=== PATIENT | male | born 1960 | race Caucasian/White ===

== ENCOUNTER 2018-07-14 16:35 | Inpatient (IN) ==
[2018-07-14] MEDS ORDERED: Ondansetron 4 MG/2 ML VIAL IVP ONE ×2 (16:55→20:28)
[2018-07-14] MEDS ORDERED: 0.9 % Sodium Chloride 1,000 ML IVC ONE ×2 (16:55→19:37)
--- NOTE | 2018-07-14 16:59 | Emergency Department Note ---
Disposition Clinical Impression: Hyperglycemia, ALEX (acute kidney injury) Sepsis Qualifiers: Sepsis type: sepsis due to unspecified organism Qualified Code(s): A41.9 - Sepsis, unspecified organism Pneumonia Qualifiers: Pneumonia type: due to unspecified organism Laterality: right Lung location: upper lobe of lung Qualified Code(s): J18.1 - Lobar pneumonia, unspecified organism Anemia Qualifiers: Anemia type: unspecified type Qualified Code(s): D64.9 - Anemia, unspecified Disposition: Admitted As Inpatient Condition: Fair Referrals: Rosario Abad NURSING DEPARTMENT CHAIRPERSON [Primary Care Provider] - Forms: ED Satisfaction Letter, Work/School Release Time of Disposition: 22:02 General Adult HPI - General Chief complaint: ED General Medical Stated complaint: N/V/D Time Seen by Provider: 07/14/18 16:43 Source: patient Mode of arrival: ambulatory Limitations: no limitations Nursing Notes Reviewed: Yes Vital Signs Reviewed: Yes - History of Present Illness HPI Narrative: Patient is a 58-year-old male that presents the emergency department with reports of nausea vomiting and diarrhea as well as being hyperglycemic. Patient and his states that this is been ongoing for An appear to time became to Dr. Pdeerson's office to have further evaluated. Patient was then subsequently sent here to the emergency department for further evaluation. Patient states that he has some mild lower abdominal discomfort. Patient states that he has diarrhea that is watery and will soak through the pens that he wears. Patient also states he has chronic vomiting and has to spit up into a bucket multiple times per day. She also states that his blood sugar has been running high at home. States that the meter does not read it just reads high. Patient states that he has been taking all of his insulin including his Lantus and NovoLog as prescribed. 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 Denies any fevers or chills. Pain Scale: 8 - Related Data Home Medications Medication Instructions Recorded Confirmed Cyanocobalamin (B-12) [Vitamin B12] 1,000 mcg PO DAILY 07/14/18 07/14/18 Glimepiride [Amaryl] 2 mg PO BID 07/14/18 07/14/18 Insulin ASPART [NovoLOG] 0 unit SQ TID 07/14/18 07/14/18 Insulin Glargine [Lantus] 30 units SQ BID 07/14/18 07/14/18 Lisinopril [Zestril] 10 mg PO DAILY 07/14/18 07/14/18 Metformin HCl 1,000 mg PO BID 07/14/18 07/14/18 Allergies Allergy/AdvReac Type Severity Reaction Status Date / Time No Known Allergies Allergy Verified 07/14/18 16:40 All systems ED: reviewed and negative except as stated. Constitutional: Denies: fever, chills Cardiovascular: Denies: chest pain Respiratory: Denies: dyspnea Gastrointestinal: Reports: abdominal pain, nausea, vomiting, diarrhea Past Medical History - Past Medical History Medical history: Reports: diabetes Psychiatric history: Reports: no psych history - Social History Smoking Status: Current every day smoker Smokeless Tobacco Status: No Alcohol use: Reports: none Drug use: Reports: none Physical Exam - General Limitations: no limitations General appearance: alert, in no apparent distress - Head Head exam: atraumatic, normocephalic - Eye Eye exam: Present: normal appearance, EOMI - Neck Neck exam: Present: normal inspection, full ROM, trachea midline - Respiratory Respiratory exam: Present: normal lung sounds bilaterally. Absent: respiratory distress, wheezes - Cardiovascular Cardiovascular exam: Present: regular rate, normal rhythm, normal heart sounds, +S1, +S2 - Abdominal Exam Abdominal exam: Present: soft, Non-Tender, normal bowel sounds - Neurological Exam Neurological exam: Present: alert, oriented X3 - Psychiatric Psychiatric exam: Present: normal affect, normal mood - Skin Skin exam: Present: warm, dry, intact Course Vital Signs Temperature 98.1 F 07/14/18 16:37 Pulse Rate 122 07/14/18 16:37 Respiratory Rate 20 07/14/18 16:37 Blood Pressure 87/59 07/14/18 16:37 O2 Sat by Pulse Oximetry 98 07/14/18 16:37 Temperature 98.1 F 07/14/18 16:48 Pulse Rate 115 07/14/18 21:01 Respiratory Rate 19 07/14/18 21:01 Blood Pressure 148/72 07/14/18 21:01 O2 Sat by Pulse Oximetry 96 07/14/18 21:01 Oxygen Delivery Oxygen Delivery Room Air Medical Decision Making - MDM Narrative Medical decision making narrative: Due to the patient having presented with abdominal pain nausea vomiting diarrhea and elevated blood glucose are is concern for possible being in DKA. We will obtain basic laboratory testing, VBG, beta hydroxybutyric acid and we will provide the patient with antiemetics and IV fluids here in the emergency department. Disposition will be pending the workup of his laboratory testing. Patient does have an elevated white count of 16. Patient has a elevated glucose of 299 which is consistent with his diabetes. Patient does not have a anion gap. Patient does not have elevated ketones in his urine. Patient is not acidotic at this time. Patient does not meet criteria for DKA. Patient has been given IV fluids. Patient does appear to have acute kidney injury with a creatinine of 2.06 and a GFR of 33. Patient will be given additional IV fluids based on the patient having the acute kidney injury. Patient does have an anemia of 10.7 however this does appear to be chronic for the patient and is not new at this time. 1953 the patient was identified as meeting Sirs criteria. Patient has a significant male other white, 16,000 with a heart rate in the 120s. At this time there is no identifiable source of infection. A chest x-ray and influenza swabs have been ordered. The urine is still pending. Lactic acid is also been ordered. If the patient comes back with a source of infection the patient will be started on broad-spectrum antibiotics. Patient will require admission to the hospital for evaluation and management of his medical condition. Patient does have the elevation in his white blood cell count and tachycardia. With the findings on the chest x-ray consistent with a possible focal consolidation the patient does meet sepsis criteria. Patient was started on antibiotics of Levaquin. Patient will need to be admitted to the hospital for continuation of his care and further evaluation and management. His urinalysis is pending however the patient did receive Levaquin which would cover for his urine if he were to be infected. Called spoke the admitting hospitalist Dr. Laguna and he has accepted the patient to their service. - Medical Records Medical records reviewed: Yes I reviewed the patient's medical records. - Lab Data Lab results reviewed: Yes I reviewed the patient's lab results. Result diagrams: 07/14/18 18:28 07/14/18 18:28 Lab Results 07/14/18 07/14/18 07/14/18 Range/Units 18:28 18:28 18:28 WBC 16.0 H (4.3-11.1) K/mcL RBC 3.75 L (4.19-5.50) M/mcL Hgb 10.7 L (12.9-16.9) g/dL Hct 32.7 L (37.5-50.1) % MCV 87.2 (83.0-100.0) fL MCH 28.5 (28.0-33.3) pg MCHC 32.7 (31.6-35.5) g/dL RDW 15.3 H (11.5-14.5) % Plt Count 64 L (140-400) K/mcL MPV 10.6 (9.4-12.4) fL Seg Neutrophils % 64.0 % Band Neutrophils % 16.0 H (0-4) % Lymphocytes % 12.0 % Monocytes % 8.0 % Neutrophils # 12.8 H (1.6-8.9) K/mcL Lymphocytes # 1.9 (0.6-4.6) K/mcL Monocytes # 1.3 (0.0-1.3) K/mcL Platelet Estimate Decreased L (Normal) Immature Plt Fraction 4.0 (1.1-6.1) % VBG pH (7.32-7.42) pH Units VBG pCO2 (41-51) mmHg VBG pO2 (25-50) mmHg VBG HCO3 (21-27) mEq/L Sodium 133 L (136-145) mEq/L Potassium 3.4 L (3.5-5.1) mEq/L Chloride 102 (98-107) mEq/L Carbon Dioxide 25 (23-29) mEq/L BUN 33 H (8-23) mg/dL Creatinine 2.06 H (0.70-1.30) mg/dL Est GFR ( Amer) 40 L (> 60) Est GFR (Non-Af Amer) 33 L (> 60) BUN/Creatinine Ratio 16 (6-26) Glucose 299 H (70-105) mg/dL Calculated Osmolality 294 (280-300) Lactic Acid (0.5-2.2) mmol/L Calcium 8.0 L (8.6-10.3) mg/dL Total Bilirubin 0.6 (0.3-1.0) mg/dL Direct Bilirubin 0.1 (0.0-0.2) mg/dL Indirect Bilirubin 0.5 (0.0-1.2) mg/dL AST 12 L (13-39) Units/L ALT 14 (7-52) Units/L Alkaline Phosphatase 85 (34-104) Units/L Serum Total Protein 6.0 L (6.4-8.9) g/dL Albumin 3.1 L (3.5-5.7) g/dL Globulin 2.9 (2.4-3.5) g/dL Albumin/Globulin Ratio 1.1 (1.1-2.2) Lipase < 3 L (11-82) Units/L Beta-Hydroxybutyric Acd 0.20 (0.02-0.27) mmol/L 07/14/18 07/14/18 Range/Units 18:46 20:17 WBC (4.3-11.1) K/mcL RBC (4.19-5.50) M/mcL Hgb (12.9-16.9) g/dL Hct (37.5-50.1) % MCV (83.0-100.0) fL MCH (28.0-33.3) pg MCHC (31.6-35.5) g/dL RDW (11.5-14.5) % Plt Count (140-400) K/mcL MPV (9.4-12.4) fL Seg Neutrophils % % Band Neutrophils % (0-4) % Lymphocytes % % Monocytes % % Neutrophils # (1.6-8.9) K/mcL Lymphocytes # (0.6-4.6) K/mcL Monocytes # (0.0-1.3) K/mcL Platelet Estimate (Normal) Immature Plt Fraction (1.1-6.1) % VBG pH 7.44 H (7.32-7.42) pH Units VBG pCO2 36 L (41-51) mmHg VBG pO2 58 H (25-50) mmHg VBG HCO3 24 (21-27) mEq/L Sodium (136-145) mEq/L Potassium (3.5-5.1) mEq/L Chloride (98-107) mEq/L Carbon Dioxide (23-29) mEq/L BUN (8-23) mg/dL Creatinine (0.70-1.30) mg/dL Est GFR ( Amer) (> 60) Est GFR (Non-Af Amer) (> 60) BUN/Creatinine Ratio (6-26) Glucose (70-105) mg/dL Calculated Osmolality (280-300) Lactic Acid 0.9 (0.5-2.2) mmol/L Calcium (8.6-10.3) mg/dL Total Bilirubin (0.3-1.0) mg/dL Direct Bilirubin (0.0-0.2) mg/dL Indirect Bilirubin (0.0-1.2) mg/dL AST (13-39) Units/L ALT (7-52) Units/L Alkaline Phosphatase (34-104) Units/L Serum Total Protein (6.4-8.9) g/dL Albumin (3.5-5.7) g/dL Globulin (2.4-3.5) g/dL Albumin/Globulin Ratio (1.1-2.2) Lipase (11-82) Units/L Beta-Hydroxybutyric Acd (0.02-0.27) mmol/L - Radiology Data Radiology results reviewed: Yes I reviewed the patient's radiology results. Chest X-Ray 07/14/18 19:36 IMPRESSION: Central vascular congestion without overt edema. Focal opacity overlying the right upper lung which could represent airspace disease, a nodule or could be external to the patient. Consider short interval follow-up radiograph with removal of overlying chest leads. D/ / Jerry Camacho MD / Jerry Camacho MD Interpreting Provider: Jerry Camacho MD - EKG Data EKG #1 EKG attestation: Yes I reviewed and interpreted this EKG. EKG results narrative: EKG shows a sinus rhythm and rate of 108 bpm, CT interval 134, QRS duration 85, QTC of 486. No evidence of STEMI on EKG. Attestation Statement - Attestation Attestation: I, Otoniel Amado DO, examined this patient [id number] and my medical decision-making was reviewed with Dr. Will Pino, Resident Physician. I ag ree with the documented findings, disposition and treatment plan as described except to the extent set forth below. Please see my progress notes for details.
--- NOTE | 2018-07-14 18:37 | Emergency Department Note ---
Disposition Clinical Impression: Hyperglycemia, ALEX (acute kidney injury) Sepsis Qualifiers: Sepsis type: sepsis due to unspecified organism Qualified Code(s): A41.9 - Sepsis, unspecified organism Pneumonia Qualifiers: Pneumonia type: due to unspecified organism Laterality: right Lung location: upper lobe of lung Qualified Code(s): J18.1 - Lobar pneumonia, unspecified organism Anemia Qualifiers: Anemia type: unspecified type Qualified Code(s): D64.9 - Anemia, unspecified Disposition: Admitted As Inpatient Condition: Fair Referrals: Rosario Abad CNP [Primary Care Provider] - Forms: ED Satisfaction Letter, Work/School Release Time of Disposition: 22:20 General Adult HPI - General Chief complaint: ED General Medical Stated complaint: N/V/D Time Seen by Provider: 07/14/18 16:43 Source: patient Mode of arrival: ambulatory Limitations: no limitations - History of Present Illness Pain Scale: 8 - Related Data Home Medications Medication Instructions Recorded Confirmed Cyanocobalamin (B-12) [Vitamin B12] 1,000 mcg PO DAILY 07/14/18 07/14/18 Glimepiride [Amaryl] 2 mg PO BID 07/14/18 07/14/18 Insulin ASPART [NovoLOG] 0 unit SQ TID 07/14/18 07/14/18 Insulin Glargine [Lantus] 30 units SQ BID 07/14/18 07/14/18 Lisinopril [Zestril] 10 mg PO DAILY 07/14/18 07/14/18 Metformin HCl 1,000 mg PO BID 07/14/18 07/14/18 Allergies Allergy/AdvReac Type Severity Reaction Status Date / Time No Known Allergies Allergy Verified 07/14/18 16:40 Constitutional: Denies: fever, chills Cardiovascular: Denies: chest pain Respiratory: Denies: dyspnea Gastrointestinal: Reports: abdominal pain, nausea, vomiting, diarrhea Past Medical History - Past Medical History Medical history: Reports: diabetes Psychiatric history: Reports: no psych history - Social History Smoking Status: Current every day smoker Smokeless Tobacco Status: No Alcohol use: Reports: none Drug use: Reports: none Physical Exam - General Limitations: no limitations General appearance: alert, in no apparent distress Course Vital Signs Temperature 98.1 F 07/14/18 16:37 Pulse Rate 122 07/14/18 16:37 Respiratory Rate 20 07/14/18 16:37 Blood Pressure 87/59 07/14/18 16:37 O2 Sat by Pulse Oximetry 98 07/14/18 16:37 Temperature 98.1 F 07/14/18 16:48 Pulse Rate 115 07/14/18 21:01 Respiratory Rate 19 07/14/18 21:01 Blood Pressure 148/72 07/14/18 21:01 O2 Sat by Pulse Oximetry 96 07/14/18 21:01 Oxygen Delivery Oxygen Delivery Room Air Medical Decision Making - Lab Data Result diagrams: 07/14/18 18:28 07/14/18 18:28 Lab Results 07/14/18 07/14/18 07/14/18 Range/Units 18:28 18:28 18:28 WBC 16.0 H (4.3-11.1) K/mcL RBC 3.75 L (4.19-5.50) M/mcL Hgb 10.7 L (12.9-16.9) g/dL Hct 32.7 L (37.5-50.1) % MCV 87.2 (83.0-100.0) fL MCH 28.5 (28.0-33.3) pg MCHC 32.7 (31.6-35.5) g/dL RDW 15.3 H (11.5-14.5) % Plt Count 64 L (140-400) K/mcL MPV 10.6 (9.4-12.4) fL Seg Neutrophils % 64.0 % Band Neutrophils % 16.0 H (0-4) % Lymphocytes % 12.0 % Monocytes % 8.0 % Neutrophils # 12.8 H (1.6-8.9) K/mcL Lymphocytes # 1.9 (0.6-4.6) K/mcL Monocytes # 1.3 (0.0-1.3) K/mcL Platelet Estimate Decreased L (Normal) Immature Plt Fraction 4.0 (1.1-6.1) % VBG pH (7.32-7.42) pH Units VBG pCO2 (41-51) mmHg VBG pO2 (25-50) mmHg VBG HCO3 (21-27) mEq/L Sodium 133 L (136-145) mEq/L Potassium 3.4 L (3.5-5.1) mEq/L Chloride 102 (98-107) mEq/L Carbon Dioxide 25 (23-29) mEq/L BUN 33 H (8-23) mg/dL Creatinine 2.06 H (0.70-1.30) mg/dL Est GFR ( Amer) 40 L (> 60) Est GFR (Non-Af Amer) 33 L (> 60) BUN/Creatinine Ratio 16 (6-26) Glucose 299 H (70-105) mg/dL Calculated Osmolality 294 (280-300) Lactic Acid (0.5-2.2) mmol/L Calcium 8.0 L (8.6-10.3) mg/dL Total Bilirubin 0.6 (0.3-1.0) mg/dL Direct Bilirubin 0.1 (0.0-0.2) mg/dL Indirect Bilirubin 0.5 (0.0-1.2) mg/dL AST 12 L (13-39) Units/L ALT 14 (7-52) Units/L Alkaline Phosphatase 85 (34-104) Units/L Serum Total Protein 6.0 L (6.4-8.9) g/dL Albumin 3.1 L (3.5-5.7) g/dL Globulin 2.9 (2.4-3.5) g/dL Albumin/Globulin Ratio 1.1 (1.1-2.2) Lipase < 3 L (11-82) Units/L Beta-Hydroxybutyric Acd 0.20 (0.02-0.27) mmol/L 07/14/18 07/14/18 Range/Units 18:46 20:17 WBC (4.3-11.1) K/mcL RBC (4.19-5.50) M/mcL Hgb (12.9-16.9) g/dL Hct (37.5-50.1) % MCV (83.0-100.0) fL MCH (28.0-33.3) pg MCHC (31.6-35.5) g/dL RDW (11.5-14.5) % Plt Count (140-400) K/mcL MPV (9.4-12.4) fL Seg Neutrophils % % Band Neutrophils % (0-4) % Lymphocytes % % Monocytes % % Neutrophils # (1.6-8.9) K/mcL Lymphocytes # (0.6-4.6) K/mcL Monocytes # (0.0-1.3) K/mcL Platelet Estimate (Normal) Immature Plt Fraction (1.1-6.1) % VBG pH 7.44 H (7.32-7.42) pH Units VBG pCO2 36 L (41-51) mmHg VBG pO2 58 H (25-50) mmHg VBG HCO3 24 (21-27) mEq/L Sodium (136-145) mEq/L Potassium (3.5-5.1) mEq/L Chloride (98-107) mEq/L Carbon Dioxide (23-29) mEq/L BUN (8-23) mg/dL Creatinine (0.70-1.30) mg/dL Est GFR ( Amer) (> 60) Est GFR (Non-Af Amer) (> 60) BUN/Creatinine Ratio (6-26) Glucose (70-105) mg/dL Calculated Osmolality (280-300) Lactic Acid 0.9 (0.5-2.2) mmol/L Calcium (8.6-10.3) mg/dL Total Bilirubin (0.3-1.0) mg/dL Direct Bilirubin (0.0-0.2) mg/dL Indirect Bilirubin (0.0-1.2) mg/dL AST (13-39) Units/L ALT (7-52) Units/L Alkaline Phosphatase (34-104) Units/L Serum Total Protein (6.4-8.9) g/dL Albumin (3.5-5.7) g/dL Globulin (2.4-3.5) g/dL Albumin/Globulin Ratio (1.1-2.2) Lipase (11-82) Units/L Beta-Hydroxybutyric Acd (0.02-0.27) mmol/L Attestation Statement - Attestation Attestation: I, Otoniel Amado DO, examined this patient [id number] and my medical decision-making was reviewed with Dr. Will Pino, Resident Physician. I agree with the documented findings, disposition and treatment plan as described except to the extent set forth below. Please see my progress notes for details. 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 Patient is being seen and evaluated there today when they noticed that his glucoses significantly high. Patient is been having issues with diabetic con trol at home. Patient denies any falls trauma or injury. He has not had any recent illnesses. Denies any fevers and chills. Denies any chest pain shortness of breath headache or vision change. He has not had any specific nausea vomiting or diarrhea. Patient does have a history of smoking but has never been diagnosed with COPD. He does appear to be moderately uncomfortable on presentation. Lungs are clear to auscultation but with intermittent expiratory wheezing. Heart is regular. Abdomen is soft nontender nondistended with no guarding no rigidity no peritoneal symptoms at this time. Extremities appear to be normal. Accu-Chek prior to coming in is greater than 700 according to the . Patient has been in diabetic ketoacidosis in the past. There is concern for that at this time considering his blood pressure was low at the presentation as well as his heart rate being elevated. Fluid resuscitation nausea medication as well as chest x-ray EKG CBC chemistry and urinalysis will be collected at this point. Disposition pending the full workup and treatment course. Patient is otherwise resting in the bed. We will continue to monitor here until treatment course has been established and completed. See detailed documentation of the physical exam, medical intervention, medical decision- making and disposition in the resident physician's note. 1915 Patient has elevated white blood cell count neutrophilia. No focal infectious source noted at this time. Renal insufficiency is also noted. Dehydration is a etiology is suspected at this point. Fluid hydration will be started this time. Urinalysis and chest x-ray along with EKG will be collected as well. Patient is otherwise just describing generalized malaise and myalgias. Patient will most likely require admission for fluid resuscitation close monitoring. 2200 Patient has neutrophilia as well as elevated WBC count. His lactic acid as well as his blood pressure have been stable. Patient does meet sepsis criteria at 2130 hours. Blood cultures and antibiotics will be ordered at this time. Urinalysis is still pending. Suspected infectious sources pneumonia based on the chest x-ray at this time. He will be admitted for continuation of care monitor here in the hospital setting. Fluid resuscitation is alert he then started this time secondary to acute renal insufficiency and other underlying etiology. Patient will be discussed with the hospitals for admission to be completed and then disposition will be determined. Dr. Laguna reviewed the patient's presentation symptoms medical history as well as intervention provided here in the emergency room. No other acute recommendations this time. Patient is otherwise clinically stable. Antibiotic regimen started been started.
[2018-07-14 18:49] LABS: VBG HCO3 24 mEq/L (21-27); VBG PCO2 36 mmHg (41-51); VBG PH 7.44 pH Units (7.32-7.42); VBG PO2 58 mmHg (25-50)
[2018-07-14 18:53] LABS: Hematocrit 32.7 % (37.5-50.1); Hemoglobin 10.7 g/dL (12.9-16.9); Mean Corpuscular HGB Conc 32.7 g/dL (31.6-35.5); Mean Corpuscular Hemoglobin 28.5 pg (28.0-33.3); Mean Corpuscular Volume 87.2 fL (83.0-100.0); Mean Platelet Volume 10.6 fL (9.4-12.4); Red Blood Count 3.75 M/mcL (4.19-5.50); Red Cell Distribution Width 15.3 % (11.5-14.5)
[2018-07-14 19:18] LABS: Platelet Count 64 K/mcL (140-400)
[2018-07-14 19:20] LABS: Lymphocytes # 1.9 K/mcL (0.6-4.6); Monocytes # 1.3 K/mcL (0.0-1.3); Neutrophils # 12.8 K/mcL (1.6-8.9); Platelet Estimate Decreased (Normal)
[2018-07-14 19:34] LABS: Alanine Aminotransferase 14 Units/L (7-52); Albumin 3.1 g/dL (3.5-5.7); Albumin/Globulin Ratio 1.1 (1.1-2.2); Alkaline Phosphatase 85 Units/L (34-104); Aspartate Amino Transferase 12 Units/L (13-39); BUN/Creatinine Ratio 16 (6-26); Bilirubin,Direct 0.1 mg/dL (0.0-0.2); Bilirubin,Indirect 0.5 mg/dL (0.0-1.2); Bilirubin,Total 0.6 mg/dL (0.3-1.0); Blood Urea Nitrogen 33 mg/dL (8-23); Carbon Dioxide 25 mEq/L (23-29); Chloride 102 mEq/L (98-107); Globulin 2.9 g/dL (2.4-3.5); Glucose 299 mg/dL (70-105); Lipase < 3 Units/L (11-82); Osmolality,Calculated 294 (280-300); Potassium 3.4 mEq/L (3.5-5.1); Sodium 133 mEq/L (136-145); eGFR For Non-African Americans 33 (> 60)
[2018-07-14] MEDS ORDERED: Levofloxacin 750 MG/150 ML 750 MG/150 ML BAG IVPB ONE (21:59)
[2018-07-14 22:17] LABS: Bilirubin,Urine Negative (Negative); Blood,Urine Moderate (Negative); Clarity,Urine Cloudy (Clear); Color,Urine Yellow (Yellow); Glucose,Urine (UA) 100 mg/dL (Normal); Ketones,Urine Negative (Negative); Leukocyte Esterase,Urine Small (Negative); Nitrite,Urine Positive (Negative); PH,Urine 5.5 pH Units (5.0-8.0); Protein,Urine >=300 mg/dL (Neg-Trace); Specific Gravity,Urine 1.016 (1.010-1.025); Urobilinogen,Urine Normal (Normal)
[2018-07-14 22:19] LABS: Bacteria,Urine Many per hpf (None-Few); Hyaline Casts,Urine Few per lpf (None-Few); Squamous Epithelial Cell,Urine Many per lpf (None-Few); WBC,Urine TNTC per hpf (0-3)
[2018-07-14] MEDS ORDERED: 0.9 % Sodium Chloride 1,000 ML IVC SCH (22:30)
[2018-07-15] MEDS ORDERED: D5% in Water 1,000 ML IVC PRN (05:47)
[2018-07-15] MEDS ORDERED: Acetaminophen 325 MG TABLET PO PRN (05:47)
[2018-07-15] MEDS ORDERED: Dextrose Gel 15 GM/37.5 ML TUBE PO PRN ×2 (05:47)
[2018-07-15] MEDS ORDERED: Albuterol 2.5 MG/3 ML NEBULIZER IH PRN (05:47)
[2018-07-15] MEDS ORDERED: *HR* Dextrose 50 % in Water (Syg) 50 ML SYRINGE IVP PRN (05:47)
[2018-07-15] MEDS ORDERED: Naloxone 0.4 MG/ML INJ IVP PRN (05:47)
[2018-07-15] MEDS ORDERED: 0.9 % Sodium Chloride 1,000 ML IVC SCH (05:53)
--- NOTE | 2018-07-15 05:57 | Internal Med History&Physical ---
Date of Encounter: 07/15/18 Time of Encounter: 05:54 Internal Medicine - H&P: HPI Chief complaint: vomiting, cough, fever Admitted From: Emergency Dept Plans for Post Hospital Care: Home History of present illness: Mr. Adams is a 58 year old male who was sent to the ER from Dr. Molina's office yesterday for concerns of poor glucose control and concern for possible DKA. He did not have any evidence of DKA on labs, but he was found to have evidence of pneumonia, UTI, and clinical parameters suggesting sepsis. He was started on IV fluid boluses and antibiotics and admitted to hospitalist service. Upon my assessment of the patient several hours later, he is on IV fluids and he already had a dose of antibiotics. Upon review of his labs and orders, he never had blood or urine cultures collected despite the fluid boluses and antibiotics administered. I will order STAT cultures at this time. He appears dehydrated. He states he was having vomiting and diarrhea for the last several days. He has had productive cough and some shortness of breath. He admits to subjective fevers and chills but no night sweats. He denies any ill contacts. He has had some dysuria as well. Patient does feel better after fluid boluses. Past Med Surg Social Fam HX - Past Medical History Attestation: Yes The following information was validated with the patient. Source: patient, old records reviewed Medical history: diabetes Additional medical history: Pancreatitis. Chronic back pain Psychiatric history: no psych history - Past Surgical History Surgical History: other Additional surgical history: Pseudocyst surgery. Left great toe amputation - Social History Smoking Status: Current every day smoker Smokeless Tobacco Status: No Alcohol use: none Drug use: none Current living situation: Home, With Family Activity Level: Independent ambulation Recent Out of Country Travel Within the Last 8 Weeks: No - Family History Mother Living Status: Hx Family GI Disorders: No Father Living Status: Hx Family GI Disorders: No Internal Medicine - H&P: Meds Cyanocobalamin (B-12) [Vitamin B12] 1,000 mcg PO DAILY 07/14/18 [History] Glimepiride [Amaryl] 2 mg PO BID 07/14/18 [History] Insulin ASPART [NovoLOG] 0 unit SQ TID 07/14/18 [History] Insulin Glargine [Lantus] 30 units SQ BID 07/14/18 [History] Lisinopril [Zestril] 10 mg PO DAILY 07/14/18 [History] Metformin HCl 1,000 mg PO BID 07/14/18 [History] Allergy/AdvReac Type Severity Reaction Status Date / Time No Known Allergies Allergy Verified 07/14/18 16:40 - Constitutional Constitutional: chills, fever(s), no night sweats - EENT Eyes: no blurry vision, no change in vision Ears: no ear pain, no tinnitus Nose, mouth and throat: no nasal congestion, no sinus pressure - Cardiovascular Cardiovascular ROS IM: no chest pain, no dyspnea, no lightheadedness, no orthopnea, no syncope - Respiratory Respiratory: cough, chest congestion, excessive phlegm production, no hemoptysis, no change in phlegm color, no pain with cough - Gastrointestinal Gastrointestinal: diarrhea, nausea, vomiting, no abdominal pain, no hematemesis, no hematochezia, no melena - Genitourinary Genitourinary ROS male: dysuria, no flank pain, no hematuria - Musculoskeletal Musculoskeletal ROS IM: no arthralgias, no back pain, no myalgias - Integumentary Integumentary IM: no rash, no jaundice - Neurological Neurological ROS: no disequilibrium, no dizziness, no focal weakness, no frequent falls, no headache(s) - Psychiatric Psychiatric: no anxiety, no depression - Endocrine Endocrine IM: no polydipsia, no polyphagia, no polyuria - Allergic/Immunologic Allergic/Immunologic: GI upset with certain foods, no wheezing - Constitutional Vitals: Temp Pulse Resp BP Pulse Ox 98.6 F 105 20 133/72 96 07/15/18 03:57 07/15/18 03:57 07/15/18 03:57 07/15/18 03:57 07/15/18 03:57 General appearance: Present: cooperative, mild distress, A&O X 3, pleasant, answers questions appropriately Exam: looks clinically dry - Head Head exam: Present: atraumatic, normal inspection - Eye Eye exam: Present: EOMI, PERRL. Absent: scleral icterus Pupils: Present: normal accommodation - ENT ENT exam: Present: mucous membranes dry, normal exam, normal oropharynx - Neck Neck exam general surgery: Present: full ROM, supple. Absent: tenderness, nuchal rigidity, thyromegaly - Respiratory Respiratory exam: Present: rales, rhonchi. Absent: accessory muscle use, chest wall tenderness, respiratory distress, wheezes, tachypnea - Cardiovascular Cardiovascular exam: Present: distant heart sounds, RRR, +S1, +S2. Absent: diastolic murmur, systolic murmur - GI/Abdominal GI/Abdominal exam: Present: hypoactive bowel sounds, soft, tenderness (mild suprapubic), no peritoneal signs. Absent: guarding, hepatomegaly, mass, rebound, splenomegaly - Extremities Exam Extremities exam: Present: full ROM, warm, radial pulses palpable and symmetrical. Absent: calf tenderness, pedal edema, tenderness - Back Exam Back exam: Absent: CVA tenderness (L), CVA tenderness (R) - Neurological Exam Neurological exam: Present: alert, CN II-XII intact, oriented X3, no focal deficits, strengths equal and symetr throughout - Psychiatric Psychiatric exam: Present: normal affect, normal mood - Skin Skin exam: Present: dry, intact, warm Internal Med - H&P Results - Labs CBC & Chem 7: 07/14/18 18:28 07/14/18 18:28 Labs: Short CBC 07/14/18 Range/Units 18:28 WBC 16.0 H (4.3-11.1) K/mcL Hgb 10.7 L (12.9-16.9) g/dL Hct 32.7 L (37.5-50.1) % Plt Count 64 L (140-400) K/mcL Neutrophils # 12.8 H (1.6-8.9) K/mcL BMP 07/14/18 18:28 Sodium 133 L Potassium 3.4 L Chloride 102 Carbon Dioxide 25 BUN 33 H Creatinine 2.06 H Glucose 299 H Calcium 8.0 L Liver Function 07/14/18 Range/Units 18:28 Total Bilirubin 0.6 (0.3-1.0) mg/dL Direct Bilirubin 0.1 (0.0-0.2) mg/dL AST 12 L (13-39) Units/L ALT 14 (7-52) Units/L Alkaline Phosphatase 85 (34-104) Units/L Albumin 3.1 L (3.5-5.7) g/dL Urine 07/14/18 Range/Units 22:06 Urine Color Yellow (Yellow) Urine Clarity Cloudy A (Clear) Urine pH 5.5 (5.0-8.0) pH Units Ur Specific [place] 1.016 (1.010-1.025) Urine Protein >=300 H (Neg-Trace) mg/dL Urine Glucose (UA) 100 H (Normal) mg/dL - ABG Interpretation ABG results: 07/14/18 18:46 VBG pH 7.44 H VBG pCO2 36 L VBG pO2 58 H VBG HCO3 24 - Impressions ITS Impressions Chest X-Ray 07/14/18 19:36 IMPRESSION: Central vascular congestion without overt edema. Focal opacity overlying the right upper lung which could represent airspace disease, a nodule or could be external to the patient. Consider short interval follow-up radiograph with removal of overlying chest leads. D/ / Jerry Camacho MD / Jerry Camacho MD Interpreting Provider: Jerry Camacho MD - Diagnostic Studies Chest x-ray Status: image reviewed by me (RUL pneumonia) - Assessment and plan (1) Sepsis Current Visit: Yes Status: Acute Assessment and plan: 1. Will continue IVF and monitor hemodynamics. 2. IV antibiotics to cover pneumonia and UTI. 3. STAT blood and urine cultures now as they were not done in ER. 4. Will trend lactate levels. Qualifiers: Sepsis type: sepsis due to unspecified organism Qualified Code(s): A41.9 - Sepsis, unspecified organism (2) Type 1 diabetes mellitus on insulin therapy Current Visit: Yes Status: Chronic Assessment and plan: 1. Will place on SSI and monitor glucose closely. 2. Hold oral home meds. (3) ALEX (acute kidney injury) Current Visit: Yes Status: Acute Assessment and plan: 1. Hydrate with IVF. 2. Hold NOLVIA. 3. Monitor renal function and consult nephrology if it fails to improve with above measures. (4) Pneumonia Current Visit: Yes Status: Acute Assessment and plan: 1. Will place on aerosols PRN and oxygen as needed. 2. Antibiotics and treatment for sepsis as above. Qualifiers: Pneumonia type: due to unspecified organism Laterality: right Lung location: upper lobe of lung Qualified Code(s): J18.1 - Lobar pneumonia, unspecified organism (5) DVT prophylaxis Current Visit: Yes Status: Acute Assessment and plan: 1. EPCD's. 2. No anticoagulation right now due to low platelet count.
[2018-07-15 06:33] LABS: Basophils % 0.2 %; Mean Corpuscular HGB Conc 32.2 g/dL (31.6-35.5); Mean Corpuscular Hemoglobin 28.4 pg (28.0-33.3)
[2018-07-15 06:35] LABS: Hematocrit 30.1 % (37.5-50.1); Hemoglobin 9.7 g/dL (12.9-16.9); Immature Granulocytes % 20.8 % (0-4); Immature Platelets 3.2 % (1.1-6.1); Lymphocytes # 0.4 K/mcL (0.6-4.6); Lymphocytes % 2.7 %; Mean Corpuscular Volume 88.3 fL (83.0-100.0); Mean Platelet Volume 10.9 fL (9.4-12.4); Monocytes # 0.5 K/mcL (0.0-1.3); Monocytes % 3.9 %; Neutrophils # 9.4 K/mcL (1.6-8.9); Red Blood Count 3.41 M/mcL (4.19-5.50); Red Cell Distribution Width 15.5 % (11.5-14.5); Segmented Neutrophils % 72.4 %
[2018-07-15 06:45] LABS: Platelet Count 55 K/mcL (140-400)
[2018-07-15 06:51] LABS: Albumin 2.8 g/dL (3.5-5.7); Bilirubin,Total 0.5 mg/dL (0.3-1.0); Calcium 7.3 mg/dL (8.6-10.3); Globulin 2.7 g/dL (2.4-3.5); Magnesium 1.2 mg/dL (1.6-2.6); Potassium 3.2 mEq/L (3.5-5.1); Total Protein 5.5 g/dL (6.4-8.9)
[2018-07-15 07:19] LABS: Estimated Average Glucose 312 mg/dl; Hemoglobin A1C 12.5 %
[2018-07-15 07:20] LABS: Platelet Estimate Slight Decrease (Normal)
[2018-07-15] MEDS: Insulin LISPRO 300 UNITS/3 ML VIAL SQ SCH ×3 (09:18→17:16)
[2018-07-15] MEDS: cefTRIAXone 2,000 MG in Water for inj. (sterile) 20 ML 20 ML IVP SCH (09:21)
[2018-07-15 10:11] LABS: Adenovirus Not Detected (Not Detect); Bordetella Pertussis Not Detected (Not Detect); Chlamydophila pneumoniae Not Detected (Not Detect); Coronavirus 229E Not Detected (Not Detect); Coronavirus HKU1 Not Detected (Not Detect); Coronavirus NL63 Not Detected (Not Detect); Coronavirus OC43 Not Detected (Not Detect); Human Metapneumovirus Not Detected (Not Detect); Human Rhinovirus/Enterovirus Not Detected (Not Detect); Influenza A Subtype 2009 H1 Not Detected (Not Detect); Influenza A Untypeable Not Detected (Not Detect); Influenza B Not Detected (Not Detect); Mycoplasma pneumoniae Not Detected (Not Detect); Parainfluenza Virus 1 Not Detected (Not Detect); Parainfluenza Virus 2 Not Detected (Not Detect); Parainfluenza Virus 3 Not Detected (Not Detect); Parainfluenza Virus 4 Not Detected (Not Detect); Respiratory Syncytial Virus Not Detected (Not Detect)
[2018-07-15] MEDS: Ipratropium/Albuterol Neb 3 ML IH SCH ×3 (10:53→22:30)
--- NOTE | 2018-07-15 11:49 | Electrocardiograph Report ---
[place] [id number] Test Date: 2018-07-14 Pat Name: Ke Adams Department: [id number] Room: [facility] Gender: M Chaperon: : 1960 Requested By: Otoniel Amado Order Number: [id number] Reading MD: Clifton Domingo Measurements Intervals [place] Rate: 108 P: 59 GA: 134 QRS: 63 QRSD: 85 T: 70 QT: 362 QTc: 486 Interpretive Statements Sinus tachycardia Borderline prolonged QT interval Electronically Signed On 07-15-2018 11:48:32 EST by Clifton Domingo
[2018-07-15] MEDS: Nicotine 21 MG PATCH.TD24 TD SCH (12:29)
--- NOTE | 2018-07-15 14:08 | Internal Med Progress Note ---
Hospitalist Progress Note - Encounter Date of Encounter: 07/15/18 Time of Encounter: 08:00 - Subjective Interval History: patient was seen and examiend at bedside. is very uncooperative with the providing history and with the physical examination. the only thing that he can provide is that he smokes one pack of cigarette a day. He is unsure as to why john wilkinson was referred to GI as outpatient. Currently denies any diarrhea, nausea, vomiting. reports frequency and dysuria, denies flank pain. denies cough, CP, SOB. - Exam Vitals: Temp Pulse Resp BP Pulse Ox 98.2 F 83 12 145/82 96 07/15/18 08:37 07/15/18 08:37 07/15/18 08:37 07/15/18 08:37 07/15/18 08:37 Exam: General: Patient is alert, oriented, no acute distress, uncooperative Head: atraumatic, normocephalic, Eye: normal appearance, PERRL, no scleral icterus, no conjunctival injection ENT: mucous membranes moist, normal external ear exam Neck: normal inspection, trachea midline, full ROM, no carotid bruits Chest: normal inspection, symmetric chest rise Respiratory: Good respiratory effort. Bilateral breath sounds are clear without wheezing, crackles, or rhonchi. Cardiovascular: Regular rate and rhythm. s1 and s2 No clicks, rubs, gallops, or murmors. Abdomen: Bowel sounds present normoactive x-4 quadrants. Abdomen is soft, nondistended. no Epigastric tenderness. No guarding or rebound. No organom egaly noted, could not appreciate ascites musculoskeletal: Spontaneously moving all extremities. no edema, no calf tenderness Skin: warm, dry, intact. Neuro: Alert, no focal deficit Psych: Patient's affect is normal - Assessment and Plan (1) Sepsis Current Visit: Yes Status: Acute Assessment and Plan: sepsis secondary to complicated UTI and PNA Was tachycardic with leukocytosis WBC count was 16 admission trended down to 13 Lactic acid negative Blood cultures no growth to date Urine cultures and process Urine antigens negative On ceftriaxone, doxycycline was discontinued as urine antigens were negative We will follow CT chest and CT abdomen and pelvis Influenza negative (2) Pneumonia Current Visit: Yes Status: Acute Assessment and Plan: Right upper lobe opacity Management as per above (3) Acute renal failure (ARF) Current Visit: Yes Status: Acute Assessment and Plan: Most likely prerenal from dehydration On IV hydration Currently improving bladder scan stat if >500cc will insert hill renal US with right sided hydronephrosis- urology consulted Strict intake and output We will continue to monitor renal functions Avoid nephrotoxic medications (4) Complicated urinary tract infection Current Visit: Yes Status: Acute Assessment and Plan: Renal ultrasound with right-sided hydronephrosis Urology was consulted On ceftriaxone We will follow urine cultures (5) Hydronephrosis Current Visit: Yes Status: Acute Assessment and Plan: Renal ultrasound with right-sided hydronephrosis Urology consulted will follow recommendations (6) Diabetes Current Visit: Yes Status: Acute Assessment and Plan: Insulin-dependent diabetes most likely secondary to chronic pancreatitis Currently hypoglycemic We will continue IV fluids containing D5 Fingersticks every 4 hours A1c was 12.5 (7) Chronic pancreatitis Current Visit: Yes Status: Acute Assessment and Plan: I discussed patient with primary care physician Was documented he has chronic pancreatitis however secondary to unknown etiology as per primary care he complained of fecal incontinence and diarrhea CT abdomen and pelvis ordered We will consider GI consult pending above Lipid panel STAT (8) Bicytopenia Current Visit: Yes Status: Acute Assessment and Plan: Bicytopenia is chronic as per PCP ? Related to liver disease- hepatitis serology sent, alcohol, U tox CBC on June 2018 showed hemoglobin level of 9.7 and platelet count of 55 secondary to unknown etiology as per PCPnew patient to the practice We will send peripheral smear, B12, folic acid, iron panel, PT/INR stat Avoid NSAIDs, anticoagulations, aspirin CT A/p ordered will follow (9) Hypomagnesemia Current Visit: Yes Status: Acute Assessment and Plan: Replaced will follow level in the morning (10) Hypokalemia Current Visit: Yes Status: Acute Assessment and Plan: Replaced (11) DVT prophylaxis Current Visit: Yes Status: Acute Assessment and Plan: SCDs (12) Current every day smoker Current Visit: Yes Status: Acute Assessment and Plan: smokes 1 PPd everyday for many years nicotine patch Duo-nebs - Time Spent with Patient Total time spent is greater than 50% in coordination of care (as documented) at patient's floor/unit and/or counseling patient: Internal Medicine: Result - Labs CBC & Chem 7: 07/15/18 06:15 07/15/18 06:15 Labs: Short CBC 07/14/18 07/15/18 Range/Units 18:28 06:15 WBC 16.0 H 13.0 H (4.3-11.1) K/mcL Hgb 10.7 L 9.7 L (12.9-16.9) g/dL Hct 32.7 L 30.1 L (37.5-50.1) % Plt Count 64 L 55 L (140-400) K/mcL Neutrophils # 12.8 H 9.4 H (1.6-8.9) K/mcL BMP 07/14/18 07/15/18 18:28 06:15 Sodium 133 L 137 Potassium 3.4 L 3.2 L Chloride 102 107 Carbon Dioxide 25 22 L BUN 33 H 35 H Creatinine 2.06 H 1.79 H Glucose 299 H 49 L Calcium 8.0 L 7.3 L Liver Function 07/14/18 07/15/18 Range/Units 18:28 06:15 Total Bilirubin 0.6 0.5 (0.3-1.0) mg/dL Direct Bilirubin 0.1 (0.0-0.2) mg/dL AST 12 L 12 L (13-39) Units/L ALT 14 12 (7-52) Units/L Alkaline Phosphatase 85 72 (34-104) Units/L Albumin 3.1 L 2.8 L (3.5-5.7) g/dL Urine 07/14/18 Range/Units 22:06 Urine Color Yellow (Yellow) Urine Clarity Cloudy A (Clear) Urine pH 5.5 (5.0-8.0) pH Units Ur Specific [place] 1.016 (1.010-1.025) Urine Protein >=300 H (Neg-Trace) mg/dL Urine Glucose (UA) 100 H (Normal) mg/dL - Impressions Impressions Chest X-Ray 07/14/18 19:36 IMPRESSION: Central vascular congestion without overt edema. Focal opacity overlying the right upper lung which could represent airspace disease, a nodule or could be external to the patient. Consider short interval follow-up radiograph with removal of overlying chest leads. D/ / Jerry Camacho MD / Jerry Camacho MD Interpreting Provider: Jerry Camacho MD Retroperitoneum Ultrasound 07/15/18 10:30 IMPRESSION: Mild right hydronephrosis and mild proximal right hydroureter. D/ / Jh Tena MD / Jh Tena MD Interpreting Provider: Jh Tena MD Consult Discharge Plan - Plan Referrals: Rosario Abad [facility] SPECIALIST [Primary Care Provider] - (1) Sepsis Qualifiers: Sepsis type: sepsis due to unspecified organism Qualified Code(s): A41.9 - Sepsis, unspecified organism (2) Pneumonia Qualifiers: Pneumonia type: due to unspecified organism Laterality: right Lung location: upper lobe of lung Qualified Code(s): J18.1 - Lobar pneumonia, unspecified organism (3) Acute renal failure (ARF) Qualifiers: Acute renal failure type: unspecified Qualified Code(s): N17.9 - Acute kidney failure, unspecified (5) Hydronephrosis Qualifiers: Hydronephrosis type: unspecified Qualified Code(s): N13.30 - Unspecified hydronephrosis (6) Diabetes Qualifiers: Diabetes mellitus type: due to underlying condition Diabetes mellitus intermediate insulin use: with intermediate use Diabetes mellitus complication status: without complication Qualified Code(s): E08.9 - Diabetes mellitus due to underlying condition without complications; Z79.4 - ocean transportation intermediary (current) use of insulin (7) Chronic pancreatitis Qualifiers: Pancreatitis type: unspecified pancreatitis type Qualified Code(s): K86.1 - Other chronic pancreatitis
[2018-07-15] MEDS ORDERED: Thiamine (B-1) 100 MG TABLET PO STA (14:09)
--- NOTE | 2018-07-15 14:26 | Urology - Consult Note ---
Addendum entered and electronically signed by Nakul Esposito MD 07/15/18 18:00: The patient was seen and examined with the physician's preschool assistant teacher. I agree with the assessment and plan. We will proceed with cystoscopy and right ureteral stent placement tomorrow. I made him nothing by mouth past midnight. Original Note: <Cosnuelo Rivera N - Last Filed: 07/15/18 14:38> Date of Encounter: 07/15/18 Time of Encounter: 13:40 - Assessment and Plan (1) ALEX (acute kidney injury) Current Visit: Yes Status: Acute Assessment and plan: Patient is a 58-year-old male who presents with acute kidney injury. Baseline GFR is greater than 60, and current GFR is 39. Creatinine 1.79. We are awaiting CT results to evaluate for obstruction and may proceed with urinary diversion if necessary. Continue IV hydration and antibiotics. (2) Complicated urinary tract infection Current Visit: Yes Status: Acute Assessment and plan: Patient is a 58-year-old male who presents with a urinary tract infection. On 06/16/2018, urine culture was positive for Klebsiella. Patient is unable to recall outpatient oral therapy. Vital signs are currently stable and afebrile. Patient receiving IV Rocephin. We will await urine culture results. (3) Hydronephrosis Current Visit: Yes Status: Acute Assessment and plan: Patient is a 58-year-old male who presents with the history of mild right renal hydronephrosis and proximal right hydroureter on renal ultrasound. CT of the abdomen and pelvis without contrast is pending. Discussed possibility of renal stone with patient. We will await CT results and review with patient. We may consider ureteral stent placement and will continue to follow renal function. Qualifiers: Hydronephrosis type: unspecified Qualified Code(s): N13.30 - Unspecified hydronephrosis Urology CN:HPI Consult date: 07/15/18 Reason for consult Urology: Hydronephrosis (right) History of present illness: Patient is a 58-year-old male who presents with a history of right-sided hydronephrosis, dilation of right proximal ureter found on retroperitoneal ultrasound as well as acute kidney injury and urinary tract infection. The patient was admitted through the emergency department after being sent by gastroenterology. GI was concerned for DKA, as the patient reportedly has poor glycemic control and was complaining of nausea and vomiting. The patient complains of right flank pain, dysuria, frequency, nausea, vomiting, and intermittent fever and chills. Patient denies gross hematuria or change in bowel habits. The patient is unable to recall how long his symptoms have been present. The patient denies any known history of renal stones. The patient does have a prior history of urinary tract infection in June 2018 that was culture positive for Klebsiella. The patient denies any other past urologic history, including prostate issues. The patient does not self catheterize. The patient denies any known family history of renal stones or malignancy. Past Med Surg Social Fam HX - Past Medical History Medical history: diabetes Additional medical history: Pancreatitis. Chronic back pain Psychiatric history: no psych history - Past Surgical History Surgical History: other Additional surgical history: Pseudocyst surgery. Left great toe amputation - Social History Smoking Status: Current every day smoker Smokeless Tobacco Status: No Alcohol use: none Drug use: none - Family History Mother Living Status: Hx Family GI Disorders: No Father Living Status: Hx Family GI Disorders: No Medications and Allergies Cyanocobalamin (B-12) [Vitamin B12] 1,000 mcg PO DAILY 07/14/18 [History] Glimepiride [Amaryl] 2 mg PO BID 07/14/18 [History] Insulin ASPART [NovoLOG] 0 unit SQ TID 07/14/18 [History] Insulin Glargine [Lantus] 30 units SQ BID 07/14/18 [History] Lisinopril [Zestril] 10 mg PO DAILY 07/14/18 [History] Metformin HCl 1,000 mg PO BID 07/14/18 [History] Allergy/AdvReac Type Severity Reaction Status Date / Time No Known Allergies Allergy Verified 07/14/18 16:40 Review of Systems - Constitutional chills, fatigue, fever(s), weakness - EENT Nose, mouth and throat: no dizziness, no headache(s) - Cardiovascular no chest pain, no diaphoresis, no dyspnea - Respiratory no cough, no dyspnea - Gastrointestinal abdominal pain, nausea, vomiting, no change in bowel habits - Genitourinary dysuria, flank pain, urinary frequency, no change in urinary stream, no hematuria, no urinary hesitancy, no urinary incontinence, no urinary urgency - Musculoskeletal no back pain, no muscle weakness - Integumentary no erythema, no rash - Neurological no confusion, no sensory deficit - Psychiatric no anxiety, no confusion - Hematologic/Lymphatic no easy bleeding, no easy bruising - Allergic/Immunologic no throat swelling, no wheezing Exam Initial Vital Signs Temp Pulse Resp BP Pulse Ox 98.1 F 122 20 87/59 98 07/14/18 16:37 07/14/18 16:37 07/14/18 16:37 07/14/18 16:37 07/14/18 16:37 - General physical appearance Present: well developed, no distress, no pain - Eyes Present: PERRL, normal ocular movement - ENT Present: normal nares, no hearing loss, no congestion - Neck Present: no masses, trachea midline - Respiratory Present: normal respiratory effort - Cardiovascular Cardiovascular exam IM: RRR - Abdomen Abdomen: Present: soft, tender (right CVAT) - Integumentary Present: no rash, no abnormal pigmentation - Neurologic Present: normal coordination - Musculoskeletal Present: other (normal posture) Urology Results - Labs 07/15/18 06:15 07/15/18 06:15 Abnormal lab results WBC 13.0 K/mcL (4.3-11.1) H 07/15/18 06:15 RBC 3.41 M/mcL (4.19-5.50) L 07/15/18 06:15 Hgb 9.7 g/dL (12.9-16.9) L 07/15/18 06:15 Hct 30.1 % (37.5-50.1) L 07/15/18 06:15 RDW 15.5 % (11.5-14.5) H 07/15/18 06:15 Plt Count 55 K/mcL (140-400) L 07/15/18 06:15 Immature Gran % 20.8 % (0-4) H 07/15/18 06:15 Band Neutrophils % 16.0 % (0-4) H 07/14/18 18:28 Neutrophils # 9.4 K/mcL (1.6-8.9) H 07/15/18 06:15 Lymphocytes # 0.4 K/mcL (0.6-4.6) L 07/15/18 06:15 Platelet Estimate Slight Decrease (Normal) L 07/15/18 06:15 VBG pH 7.44 pH Units (7.32-7.42) H 07/14/18 18:46 VBG pCO2 36 mmHg (41-51) L 07/14/18 18:46 VBG pO2 58 mmHg (25-50) H 07/14/18 18:46 Potassium 3.2 mEq/L (3.5-5.1) L 07/15/18 06:15 Carbon Dioxide 22 mEq/L (23-29) L 07/15/18 06:15 BUN 35 mg/dL (8-23) H 07/15/18 06:15 Creatinine 1.79 mg/dL (0.70-1.30) H 07/15/18 06:15 Est GFR ( Amer) 47 (> 60) L 07/15/18 06:15 Est GFR (Non-Af Amer) 39 (> 60) L 07/15/18 06:15 Glucose 49 mg/dL (70-105) L 07/15/18 06:15 POC Glucose 308 mg/dL (70-99) H 07/14/18 16:51 Hemoglobin A1c 12.5 % (-5.6) H 07/15/18 06:15 Calcium 7.3 mg/dL (8.6-10.3) L 07/15/18 06:15 Magnesium 1.2 mg/dL (1.6-2.6) L 07/15/18 06:15 AST 12 Units/L (13-39) L 07/15/18 06:15 Serum Total Protein 5.5 g/dL (6.4-8.9) L 07/15/18 06:15 Albumin 2.8 g/dL (3.5-5.7) L 07/15/18 06:15 Albumin/Globulin Ratio 1.0 (1.1-2.2) L 07/15/18 06:15 Lipase < 3 Units/L (11-82) L 07/14/18 18:28 Urine Clarity Cloudy (Clear) A 07/14/18 22:06 Urine Protein >=300 mg/dL (Neg-Trace) H 07/14/18 22:06 Urine Glucose (UA) 100 mg/dL (Normal) H 07/14/18 22:06 Urine Blood Moderate (Negative) H 07/14/18 22:06 Urine Nitrite Positive (Negative) A 07/14/18 22:06 Ur Leukocyte Esterase Small (Negative) H 07/14/18 22:06 Urine Microscopic RBC 5-15 per hpf (0-3) H 07/14/18 22:06 Urine Microscopic WBC TNTC per hpf (0-3) H 07/14/18 22:06 Ur Squamous Epith Cells Many per lpf (None-Few) H 07/14/18 22:06 Urine Bacteria Many per hpf (None-Few) H 07/14/18 22:06 Ur Culture Indicated? NO. (NO) A 07/14/18 22:06 Diabetes panel 07/14/18 07/15/18 07/15/18 Range/Units 18:28 06:15 06:15 Sodium 133 L 137 (136-145) mEq/L Potassium 3.4 L 3.2 L (3.5-5.1) mEq/L Chloride 102 107 (98-107) mEq/L Carbon Dioxide 25 22 L (23-29) mEq/L BUN 33 H 35 H (8-23) mg/dL Creatinine 2.06 H 1.79 H (0.70-1.30) mg/dL Glucose 299 H 49 L (70-105) mg/dL Hemoglobin A1c 12.5 H ( - 5.6) % Calcium 8.0 L 7.3 L (8.6-10.3) mg/dL AST 12 L 12 L (13-39) Units/L ALT 14 12 (7-52) Units/L Alkaline Phosphatase 85 72 (34-104) Units/L Albumin 3.1 L 2.8 L (3.5-5.7) g/dL Calcium panel 07/14/18 07/15/18 Range/Units 18:28 06:15 Calcium 8.0 L 7.3 L (8.6-10.3) mg/dL Albumin 3.1 L 2.8 L (3.5-5.7) g/dL Pituitary panel 07/14/18 07/15/18 Range/Units 18:28 06:15 Sodium 133 L 137 (136-145) mEq/L Potassium 3.4 L 3.2 L (3.5-5.1) mEq/L Chloride 102 107 (98-107) mEq/L Carbon Dioxide 25 22 L (23-29) mEq/L BUN 33 H 35 H (8-23) mg/dL Creatinine 2.06 H 1.79 H (0.70-1.30) mg/dL Glucose 299 H 49 L (70-105) mg/dL Calcium 8.0 L 7.3 L (8.6-10.3) mg/dL Adrenal panel 07/14/18 07/15/18 Range/Units 18:28 06:15 Sodium 133 L 137 (136-145) mEq/L Potassium 3.4 L 3.2 L (3.5-5.1) mEq/L Chloride 102 107 (98-107) mEq/L Carbon Dioxide 25 22 L (23-29) mEq/L BUN 33 H 35 H (8-23) mg/dL Creatinine 2.06 H 1.79 H (0.70-1.30) mg/dL Glucose 299 H 49 L (70-105) mg/dL Calcium 8.0 L 7.3 L (8.6-10.3) mg/dL Total Bilirubin 0.6 0.5 (0.3-1.0) mg/dL AST 12 L 12 L (13-39) Units/L ALT 14 12 (7-52) Units/L Alkaline Phosphatase 85 72 (34-104) Units/L Albumin 3.1 L 2.8 L (3.5-5.7) g/dL All other labs normal. - Imaging CT scan - abdomen: pending CT scan - pelvis: pending US - kidney/bladder: report reviewed Consult Discharge Plan - Plan Referrals: Rosario Abad, CATTLE KILLER [Primary Care Provider] - <Nakul Esposito - Last Filed: 07/15/18 17:59> Date of Encounter: 07/15/18 - Assessment and Plan (1) Ureteral stone Current Visit: Yes Status: Acute Assessment and plan: 58-year-old man with acute kidney injury, nausea, emesis, and concern for urinary tract infection is seen in consultation. A CT scan was obtained today which showed evidence of an obstructing right proximal ureteral stone. I di scussed this with the patient in detail. I recommend proceeding with a cystoscopy and right ureteral stent placement. He was informed of the risks of the surgery which include but are not limited to bleeding, infection, injury to structures, need for further procedures, stent irritation, need for nephrostomy tube, and the risk of anesthesia. He is willing to proceed. I will continue him on IV antibiotic. Anticipate placing the stent on 07/16/2018 as a first case start. Please contact me sooner if he has a change in his clinical condition. Exam Initial Vital Signs Temp Pulse Resp BP Pulse Ox 98.1 F 122 20 87/59 98 07/14/18 16:37 07/14/18 16:37 07/14/18 16:37 07/14/18 16:37 07/14/18 16:37 Urology Results - Labs 07/15/18 06:15 07/15/18 06:15 Abnormal lab results WBC 13.0 K/mcL (4.3-11.1) H 07/15/18 06:15 RBC 3.41 M/mcL (4.19-5.50) L 07/15/18 06:15 Hgb 9.7 g/dL (12.9-16.9) L 07/15/18 06:15 Hct 30.1 % (37.5-50.1) L 07/15/18 06:15 RDW 15.5 % (11.5-14.5) H 07/15/18 06:15 Plt Count 55 K/mcL (140-400) L 07/15/18 06:15 Immature Gran % 20.8 % (0-4) H 07/15/18 06:15 Band Neutrophils % 16.0 % (0-4) H 07/14/18 18:28 Neutrophils # 9.4 K/mcL (1.6-8.9) H 07/15/18 06:15 Lymphocytes # 0.4 K/mcL (0.6-4.6) L 07/15/18 06:15 Platelet Estimate Slight Decrease (Normal) L 07/15/18 06:15 PT 13.7 Seconds (9.4-12.1) H 07/15/18 14:45 VBG pH 7.44 pH Units (7.32-7.42) H 07/14/18 18:46 VBG pCO2 36 mmHg (41-51) L 07/14/18 18:46 VBG pO2 58 mmHg (25-50) H 07/14/18 18:46 Potassium 3.2 mEq/L (3.5-5.1) L 07/15/18 06:15 Carbon Dioxide 22 mEq/L (23-29) L 07/15/18 06:15 BUN 35 mg/dL (8-23) H 07/15/18 06:15 Creatinine 1.79 mg/dL (0.70-1.30) H 07/15/18 06:15 Est GFR ( Amer) 47 (> 60) L 07/15/18 06:15 Est GFR (Non-Af Amer) 39 (> 60) L 07/15/18 06:15 Glucose 49 mg/dL (70-105) L 07/15/18 06:15 POC Glucose 308 mg/dL (70-99) H 07/14/18 16:51 Hemoglobin A1c 12.5 % (-5.6) H 07/15/18 06:15 Calcium 7.3 mg/dL (8.6-10.3) L 07/15/18 06:15 Magnesium 1.2 mg/dL (1.6-2.6) L 07/15/18 06:15 Iron < 10 mcg/dL (65-175) L 07/15/18 14:45 Transferrin 145 mg/dL (203-362) L 07/15/18 14:45 AST 12 Units/L (13-39) L 07/15/18 06:15 Serum Total Protein 5.5 g/dL (6.4-8.9) L 07/15/18 06:15 Albumin 2.8 g/dL (3.5-5.7) L 07/15/18 06:15 Albumin/Globulin Ratio 1.0 (1.1-2.2) L 07/15/18 06:15 HDL Cholesterol 15 mg/dL (40-59) L 07/15/18 14:45 Cholesterol/HDL Ratio 7.2 (0-4.9) H 07/15/18 14:45 Lipase < 3 Units/L (11-82) L 07/14/18 18:28 Vitamin B12 105 pg/mL (250-1100) L 07/15/18 14:31 Urine Clarity Cloudy (Clear) A 07/14/18 22:06 Urine Protein >=300 mg/dL (Neg-Trace) H 07/14/18 22:06 Urine Glucose (UA) 100 mg/dL (Normal) H 07/14/18 22:06 Urine Blood Moderate (Negative) H 07/14/18 22:06 Urine Nitrite Positive (Negative) A 07/14/18 22:06 Ur Leukocyte Esterase Small (Negative) H 07/14/18 22:06 Urine Microscopic RBC 5-15 per hpf (0-3) H 07/14/18 22:06 Urine Microscopic WBC TNTC per hpf (0-3) H 07/14/18 22:06 Ur Squamous Epith Cells Many per lpf (None-Few) H 07/14/18 22:06 Urine Bacteria Many per hpf (None-Few) H 07/14/18 22:06 Ur Culture Indicated? NO. (NO) A 07/14/18 22:06 Hepatitis C Ab Screen Reactive (Nonreactive) H 07/15/18 13:58 Diabetes panel 07/14/18 07/15/18 07/15/18 Range/Units 18:28 06:15 06:15 Sodium 133 L 137 (136-145) mEq/L Potassium 3.4 L 3.2 L (3.5-5.1) mEq/L Chloride 102 107 (98-107) mEq/L Carbon Dioxide 25 22 L (23-29) mEq/L BUN 33 H 35 H (8-23) mg/dL Creatinine 2.06 H 1.79 H (0.70-1.30) mg/dL Glucose 299 H 49 L (70-105) mg/dL Hemoglobin A1c 12.5 H ( - 5.6) % Calcium 8.0 L 7.3 L (8.6-10.3) mg/dL AST 12 L 12 L (13-39) Units/L ALT 14 12 (7-52) Units/L Alkaline Phosphatase 85 72 (34-104) Units/L Albumin 3.1 L 2.8 L (3.5-5.7) g/dL Triglycerides (< 150) mg/dL HDL Cholesterol (40-59) mg/dL 07/15/18 Range/Units 14:45 Sodium (136-145) mEq/L Potassium (3.5-5.1) mEq/L Chloride (98-107) mEq/L Carbon Dioxide (23-29) mEq/L BUN (8-23) mg/dL Creatinine (0.70-1.30) mg/dL Glucose (70-105) mg/dL Hemoglobin A1c ( - 5.6) % Calcium (8.6-10.3) mg/dL AST (13-39) Units/L ALT (7-52) Units/L Alkaline Phosphatase (34-104) Units/L Albumin (3.5-5.7) g/dL Triglycerides 133 (< 150) mg/dL HDL Cholesterol 15 L (40-59) mg/dL Calcium panel 07/14/18 07/15/18 07/15/18 Range/Units 18:28 06:15 14:45 Calcium 8.0 L 7.3 L (8.6-10.3) mg/dL Phosphorus 2.9 (2.7-4.5) mg/dL Albumin 3.1 L 2.8 L (3.5-5.7) g/dL Pituitary panel 07/14/18 07/15/18 Range/Units 18:28 06:15 Sodium 133 L 137 (136-145) mEq/L Potassium 3.4 L 3.2 L (3.5-5.1) mEq/L Chloride 102 107 (98-107) mEq/L Carbon Dioxide 25 22 L (23-29) mEq/L BUN 33 H 35 H (8-23) mg/dL Creatinine 2.06 H 1.79 H (0.70-1.30) mg/dL Glucose 299 H 49 L (70-105) mg/dL Calcium 8.0 L 7.3 L (8.6-10.3) mg/dL Adrenal panel 07/14/18 07/15/18 Range/Units 18:28 06:15 Sodium 133 L 137 (136-145) mEq/L Potassium 3.4 L 3.2 L (3.5-5.1) mEq/L Chloride 102 107 (98-107) mEq/L Carbon Dioxide 25 22 L (23-29) mEq/L BUN 33 H 35 H (8-23) mg/dL Creatinine 2.06 H 1.79 H (0.70-1.30) mg/dL Glucose 299 H 49 L (70-105) mg/dL Calcium 8.0 L 7.3 L (8.6-10.3) mg/dL Total Bilirubin 0.6 0.5 (0.3-1.0) mg/dL AST 12 L 12 L (13-39) Units/L ALT 14 12 (7-52) Units/L Alkaline Phosphatase 85 72 (34-104) Units/L Albumin 3.1 L 2.8 L (3.5-5.7) g/dL All other labs normal.
[2018-07-15] MEDS: D5% in 0.9% NACL 1,000 ML IVC SCH (14:52)
[2018-07-15 15:25] LABS: INR 1.2; Prothrombin Time 13.7 Seconds (9.4-12.1)
[2018-07-15 15:35] LABS: Chol/HDL Ratio 7.2 (0-4.9); Phosphorous 2.9 mg/dL (2.7-4.5)
[2018-07-15 15:43] LABS: Iron < 10 mcg/dL (65-175); Transferrin 145 mg/dL (203-362)
[2018-07-15 15:49] LABS: Folate 12.4 ng/mL (3.0-16.0)
[2018-07-15] MEDS ORDERED: Ondansetron 4 MG/2 ML VIAL IVP ONE (16:30)
[2018-07-15] MEDS: *HR* OxyCODONE/APAP 5/325 TABLET PO PRN (16:36)
[2018-07-15 17:00] LABS: Hepatitis B Surface Antigen Nonreactive (Nonreactive)
[2018-07-15 17:01] LABS: Hepatitis C Virus Antibody Reactive (Nonreactive)
[2018-07-15 17:33] LABS: Hepatitis B Core IgM Nonreactive (Nonreactive)
[2018-07-15] MEDS ORDERED: Doxycycline 100 MG in 0.9 % Sodium Chloride Mini Bag 100 ML IVPB SCH (18:00)
[2018-07-15 18:27] LABS: Amphetamine Screen,Urine Negative ng/mL (Cutoff=1000); Barbiturate Screen,Urine Negative ng/mL (Cutoff=200); Benzodiazepines Screen,Urine Negative ng/mL (Cutoff=200); Cannabinoid Screen,Urine Positive ng/mL (Cutoff = 50); Cocaine Screen,Urine Negative ng/mL (Cutoff= 300); Opiate Screen,Urine Negative ng/mL (Cutoff=300); Phencyclidine Screen,Urine Negative ng/mL (Cutoff=25)
[2018-07-15 20:48] LABS: Ferritin 317 ng/mL (20-250)
[2018-07-15] MEDS ORDERED: OXYCODONE Oral CONC 10 MG/0.5 ML ORAL.SYG SL ONE (20:53)
[2018-07-15] MEDS ORDERED: Levofloxacin 750 MG/150 ML 750 MG/150 ML BAG IVPB SCH (23:00)
[2018-07-16 00:21] LABS: Acinetobacter baumannii by PCR Not Detected (Not Detect); Candida albicans by PCR Not Detected (Not Detect); Candida glabrata by PCR Not Detected (Not Detect); Candida krusei by PCR Not Detected (Not Detect); Candida parapsilosis by PCR Not Detected (Not Detect); Candida tropicalis by PCR Not Detected (Not Detect); Enterobacter cloacae Cmplx PCR Not Detected (Not Detect); Enterobacteriaceae by PCR DETECTED (Not Detect); Enterococcus by PCR Not Detected (Not Detect); Escherichia coli by PCR Not Detected (Not Detect); Klebsiella oxytoca by PCR Not Detected (Not Detect); Klebsiella pneumoniae by PCR DETECTED (Not Detect); Proteus by PCR Not Detected (Not Detect); Pseudomonas aeruginosa by PCR Not Detected (Not Detect); Serratia marcescens by PCR Not Detected (Not Detect); Staphylococcus aureus by PCR Not Detected (Not Detect); Staphylococcus by PCR Not Detected (Not Detect); Streptococcus agalactiae(B)PCR Not Detected (Not Detect); Streptococcus by PCR Not Detected (Not Detect); Streptococcus pneumoniae PCR Not Detected (Not Detect); Streptococcus pyogenes (A) PCR Not Detected (Not Detect); blaKPC Carbapenem-Resist Gene Not Detected (Not Detect)
[2018-07-16] MEDS: *HR* OxyCODONE/APAP 5/325 TABLET PO PRN ×3 (00:34→17:00)
[2018-07-16] MEDS: Ondansetron 4 MG/2 ML VIAL IVP PRN ×5 (00:35→23:05)
[2018-07-16] MEDS: Ipratropium/Albuterol Neb 3 ML IH SCH ×4 (03:51→21:20)
[2018-07-16] MEDS: D5% in 0.9% NACL 1,000 ML IVC SCH (05:35)
[2018-07-16 05:38] LABS: Hematocrit 26.3 % (37.5-50.1); Hemoglobin 8.7 g/dL (12.9-16.9); Mean Corpuscular HGB Conc 33.1 g/dL (31.6-35.5)
[2018-07-16 05:39] LABS: Immature Platelets 4.1 % (1.1-6.1); Mean Corpuscular Hemoglobin 28.9 pg (28.0-33.3); Mean Corpuscular Volume 87.4 fL (83.0-100.0); Mean Platelet Volume 10.1 fL (9.4-12.4); Red Blood Count 3.01 M/mcL (4.19-5.50); Red Cell Distribution Width 15.4 % (11.5-14.5)
[2018-07-16 05:45] LABS: Platelet Count 36 K/mcL (140-400)
[2018-07-16 05:59] LABS: Calcium 7.4 mg/dL (8.6-10.3); Potassium 3.2 mEq/L (3.5-5.1)
[2018-07-16 06:10] LABS: Carcinoembryonic Antigen 3.7 ng/mL (Less than 5.0)
[2018-07-16 06:18] LABS: Anisocytosis 1+ (Not Present); Lymphocytes # 0.5 K/mcL (0.6-4.6); Monocytes # 0.3 K/mcL (0.0-1.3); Neutrophils # 7.3 K/mcL (1.6-8.9); Platelet Estimate Decreased (Normal)
--- NOTE | 2018-07-16 07:35 | Urology Progress Note ---
Date of Encounter: 07/16/18 Time of Encounter: 07:33 - Assessment and Plan (1) Ureteral stone Current Visit: Yes Status: Acute Assessment and plan: 58 year old man with UTI and right obstructing stone. Plan for cystoscopy and right ureteral stent placement. All risks were informed. He is willing to proceed. Progress Note Narrative: 58 year old man with UTI and obstructing right ureteral stone. GNR grew out in blood. He is ready for cystoscopy and stent placement. Objective Initial Vital Signs Temp Pulse Resp BP Pulse Ox 98.1 F 122 20 87/59 98 07/14/18 16:37 07/14/18 16:37 07/14/18 16:37 07/14/18 16:37 07/14/18 16:37 - General physical appearance Present: well developed, well nourished, no distress - Respiratory Present: normal respiratory effort - Abdomen Present: soft - Integumentary Present: no rash - Labs 07/16/18 05:28 07/16/18 05:28 Diabetes panel 07/15/18 07/16/18 Range/Units 14:45 05:28 Sodium 137 (136-145) mEq/L Potassium 3.2 L (3.5-5.1) mEq/L Chloride 108 H (98-107) mEq/L Carbon Dioxide 20 L (23-29) mEq/L BUN 30 H (8-23) mg/dL Creatinine 1.48 H (0.70-1.30) mg/dL Glucose 85 (70-105) mg/dL Calcium 7.4 L (8.6-10.3) mg/dL Triglycerides 133 (< 150) mg/dL HDL Cholesterol 15 L (40-59) mg/dL Calcium panel 07/15/18 07/16/18 Range/Units 14:45 05:28 Calcium 7.4 L (8.6-10.3) mg/dL Phosphorus 2.9 (2.7-4.5) mg/dL Pituitary panel 07/16/18 Range/Units 05:28 Sodium 137 (136-145) mEq/L Potassium 3.2 L (3.5-5.1) mEq/L Chloride 108 H (98-107) mEq/L Carbon Dioxide 20 L (23-29) mEq/L BUN 30 H (8-23) mg/dL Creatinine 1.48 H (0.70-1.30) mg/dL Glucose 85 (70-105) mg/dL Calcium 7.4 L (8.6-10.3) mg/dL Adrenal panel 07/16/18 Range/Units 05:28 Sodium 137 (136-145) mEq/L Potassium 3.2 L (3.5-5.1) mEq/L Chloride 108 H (98-107) mEq/L Carbon Dioxide 20 L (23-29) mEq/L BUN 30 H (8-23) mg/dL Creatinine 1.48 H (0.70-1.30) mg/dL Glucose 85 (70-105) mg/dL Calcium 7.4 L (8.6-10.3) mg/dL Consult Discharge Plan - Plan Referrals: Rosario Abad, LESTER [Primary Care Provider] -
--- NOTE | 2018-07-16 07:35 | Anesthesia Evaluation PreOp ---
Date of Encounter: 07/16/18 Time of Encounter: 07:40 - Past History Planned Operation: cystoscopy, right ureteral stent Cardiac History: HTN Pulmonary History: Smoker [employer] History: Other (chronic back pain) Other Medical History: Renal (acute renal injury), Diabetes Type II, Other (urosepsis with positive blood cultures) Anesthesia History: No Prior Anesthetic Complications Alcohol Use: none Drug use: none Medications and Allergies Cyanocobalamin (B-12) [Vitamin B12] 1,000 mcg PO DAILY 07/14/18 [History] Glimepiride [Amaryl] 2 mg PO BID 07/14/18 [History] Insulin ASPART [NovoLOG] 0 unit SQ TID 07/14/18 [History] Insulin Glargine [Lantus] 30 units SQ BID 07/14/18 [History] Lisinopril [Zestril] 10 mg PO DAILY 07/14/18 [History] Metformin HCl 1,000 mg PO BID 07/14/18 [History] Allergy/AdvReac Type Severity Reaction Status Date / Time No Known Allergies Allergy Verified 07/14/18 16:40 - Meds/Allergy Pre-op Review Medications Reviewed: Yes Allergies Reviewed: Yes Beta Blockers on Current Med List: No Anesthesia Results - Labs 07/16/18 05:28 07/16/18 05:28 - Imaging EKG: report reviewed, image reviewed (Sinus tachycardia Borderline prolonged QT interval) Anesthesia Exam Last Vital Signs Temp 97.9 F 07/16/18 05:09 Pulse 91 07/16/18 05:09 Resp 18 07/16/18 05:09 BP 153/93 07/16/18 05:09 Pulse Ox 95 07/16/18 05:09 Weight: 84 kg NPO (# of Hours): > 8 hrs - HEENT Pupil (Motor): Pupils equal, EOMI Mallampati: III Teeth: Edentulous Oral Opening: Greater than 3 - [employer] LOC: Oriented - Cardiac Rhythm: Regular Murmur: None - Pulmonary Breath Sounds: bilateral Clear Respiratory Effort: Symmetrical Anesthesia Assess/Plan ASA Score: 3, E Level of consciousness: Cooperative Anesthetic Plan: General, Precautions (IVF, etomidate for induction) Monitoring Plan: Standard Monitors Recovery Plan: PACU
[2018-07-16] MEDS ORDERED: *HR* FentaNYL (PF) 100 MCG/2 ML VIAL ONE ×2 (07:38→08:23)
[2018-07-16] MEDS ORDERED: Lidocaine -MPF 2% 2 ML VIAL ONE (07:38)
[2018-07-16] MEDS ORDERED: *HR* Propofol 200 MG/20 ML VIAL IVP ONE (07:38)
[2018-07-16 07:47] LABS: Magnesium 1.6 mg/dL (1.6-2.6)
[2018-07-16] MEDS ORDERED: Isovue-300 50 ML VIAL IVP ONE (07:51)
[2018-07-16] MEDS: cefTRIAXone 2,000 MG in Water for inj. (sterile) 20 ML 20 ML IVP SCH (07:58)
[2018-07-16] MEDS ORDERED: Ondansetron 4 MG/2 ML VIAL ONE (08:09)
[2018-07-16] MEDS ORDERED: Dexamethasone 4 MG/ML VIAL ONE (08:09)
[2018-07-16] MEDS ORDERED: *HR* Succinylcholine 200 MG/10 ML VIAL IVP ONE (08:13)
[2018-07-16] MEDS ORDERED: *HR* Etomidate 40 MG/20 ML VIAL IVP ONE (08:13)
[2018-07-16] MEDS ORDERED: *HR* HYDROmorphone (PF) 1 MG/ML SYRINGE IVP PRN (08:14)
[2018-07-16] MEDS ORDERED: *HR* OxyCODONE Immed Rel 5 MG TABLET PO PRN (08:14)
--- NOTE | 2018-07-16 08:31 | Operative Note ---
Date of procedure: 07/16/18 Pre-op diagnosis: Right ureteral stone, urinary tract infection Post-op diagnosis: same Procedure: Cystoscopy, right retrograde pyelogram, right ureteral stent placement. Implants: 6-[place] by 26 cm double-J stent Complications: None Anesthesia: GETA Surgeon: Nakul Esposito Was there an blood and plasma laboratory assistant present: No Estimated blood loss (cc): 0 Specimen: right renal aspirate Condition: stable Disposition: PACU Procedure in Detail: Indications: Mr. Adams is a 58-year-old male who has a history of nephrolithiasis. A CT scan showed a stone within his right proximal ureter. He elected to undergo a cystoscopy and right stent placement. He was aware of the risks of the procedure including but not limited to bleeding, infection, injury to other structures, need for further procedures, stent irritation, need for nephrostomy tube, need for open repair, risks otherwise unforeseen, and the risk of anesthesia. He is willing to proceed. Procedure in Detail: After informed consent was obtained the patient was brought back to the operating room and placed in supine position. A time out was performed. General anesthesia was administered and an endotracheal tube was placed. He was then placed in the lithotomy position. He was prepped and draped in the usual sterile fashion. Cystoscopy was performed. The anterior urethra was normal. There was no evidence of bladder tumors. The ureteral orifices were in the normal orthotopic position. There was no duplication of the ureteral orifices. The Zip wire was placed in the right ureteral orifice. The wire was then brought up into the proximal ureter under fluoroscopic guidance. The obstructing stone was visualized there. An open-ended catheter was placed as the wire could not move past the stone. A retrograde pyelogram allowed for contrast to move past the stone. The wire was replaced. The wire was brought into the kidney under fluoroscopic guidance. The open-ended catheter was placed in the kidney. A renal aspirate was obtained and there was purulent urine noted. The wire was replaced and the open ended catheter was removed. A 6 [place] by 26cm JJ stent was then placed. The dangle strings were removed. The bladder was drained with a 16-[place] Kumar catheter. The patient was then awakened from general anesthesia and brought to recovery room in good condition. All sponge, needle, and instrument counts were correct.
[2018-07-16] MEDS ORDERED: Folic Acid 1 MG TABLET PO SCH (09:00)
[2018-07-16] MEDS ORDERED: Cyanocobalamin (B-12) 1,000 MCG TABLET PO SCH (09:00)
[2018-07-16] MEDS: Nicotine 21 MG PATCH.TD24 TD SCH (09:23)
[2018-07-16] MEDS: Insulin LISPRO 300 UNITS/3 ML VIAL SQ SCH ×2 (09:33→12:47)
--- NOTE | 2018-07-16 09:35 | Anesthesia Evaluation Post Op ---
Date of Encounter: 07/16/18 Time of Encounter: 09:00 - Vital Signs Vital Signs: Vital Signs/O2 Sat, Most Current Temp Pulse Resp BP Pulse Ox 97.7 F 83 18 164/105 97 07/16/18 09:14 07/16/18 09:14 07/16/18 09:14 07/16/18 09:14 07/16/18 09:03 Vital Signs/O2 Sat/Glucose, Most Current Temp Pulse Resp BP Pulse Ox 07/16/18 09:14 97.7 F 83 18 164/105 07/16/18 09:03 99.5 F 82 18 156/87 97 07/16/18 08:53 85 16 148/85 96 07/16/18 08:43 82 14 136/83 97 07/16/18 08:33 98.9 F 80 16 108/69 94 - Lungs Lungs: Clear Ascult./Percussion - Airway Airway: Non-obstructed - Cardiovascular Regular Rate, Baseline Rhythm - Mental Status Mental Status: Alert & Oriented, Answers Appropriately - Pain Pain Scale: 4 Pain Scale used: Numeric (1 - 10) - Nausea Vomiting Nausea Vomiting: Not Present - Hydration Hydration: Tolerates oral liquids, Ice chips, Kumar catheter - Discharge PostOp Status: Transfer Patient to floor
[2018-07-16] MEDS ORDERED: *HR* Dextrose 50 % in Water (Syg) 50 ML SYRINGE IVP PRN (09:39)
[2018-07-16] MEDS ORDERED: Acetaminophen 325 MG TABLET PO PRN (09:39)
[2018-07-16] MEDS ORDERED: Naloxone 0.4 MG/ML INJ IVP PRN (09:39)
[2018-07-16] MEDS ORDERED: D5% in Water 1,000 ML IVC PRN (09:39)
[2018-07-16] MEDS ORDERED: D5% in 0.9% NACL 1,000 ML IVC SCH (09:39)
[2018-07-16] MEDS ORDERED: Albuterol 2.5 MG/3 ML NEBULIZER IH PRN (09:39)
[2018-07-16] MEDS ORDERED: Dextrose Gel 15 GM/37.5 ML TUBE PO PRN ×2 (09:39)
--- NOTE | 2018-07-16 16:04 | Internal Med Progress Note ---
Hospitalist Progress Note - Encounter Date of Encounter: 07/16/18 Time of Encounter: 11:00 - Subjective Interval History: patient was seen and examiend at bedside. i S?P urology procedre. denies N/v/D. his abdominal pain has improved. denies CP, SOB or palpitations. - Exam Vitals: Temp Pulse Resp BP Pulse Ox 97.7 F 83 18 164/105 97 07/16/18 09:14 07/16/18 09:14 07/16/18 09:14 07/16/18 09:14 07/16/18 09:03 Exam: General: Patient is alert, oriented, no acute distress, uncooperative Head: atraumatic, normocephalic, Eye: normal appearance, PERRL, no scleral icterus, no conjunctival injection ENT: mucous membranes moist, normal external ear exam Neck: normal inspection, trachea midline, full ROM, no carotid bruits Chest: normal inspection, symmetric chest rise Respiratory: Good respiratory effort. Bilateral breath sounds are clear without wheezing, crackles, or rhonchi. Cardiovascular: Regular rate and rhythm. s1 and s2 No clicks, rubs, gallops, or murmors. Abdomen: Bowel sounds present normoactive x-4 quadrants. Abdomen is soft, nondistended. no Epigastric tenderness. No guarding or rebound. No organomegaly noted, could not appreciate ascites musculoskeletal: Spontaneously moving all extremities. no edema, no calf tenderness Skin: warm, dry, intact. Neuro: Alert, no focal deficit Psych: Patient's affect is normal - Assessment and Plan (1) Sepsis Current Visit: Yes Status: Acute Assessment and Plan: sepsis secondary to complicated UTI and PNA Was tachycardic with leukocytosis WBC count was 16 admission trended down to 13 Lactic acid negative Blood cultures gram negative rods x 2 Urine cultures gram negative rods Urine antigens negative On ceftriaxone, doxycycline was discontinued as urine antigens were negative Influenza negative (2) Pneumonia Current Visit: Yes Status: Acute Assessment and Plan: Right upper lobe opacity Management as per above (3) Acute renal failure (ARF) Current Visit: Yes Status: Acute Assessment and Plan: Most likely prerenal from dehydration and nephrolithiasis On IV hydration Currently improving renal US with right sided hydronephrosis- urology on board s/p stent placement Strict intake and output We will continue to monitor renal functions Avoid nephrotoxic medications (4) Complicated urinary tract infection Current Visit: Yes Status: Acute Assessment and Plan: Renal ultrasound with right-sided hydronephrosis Urology on board s/p stent placement On ceftriaxone We will follow urine cultures (5) Hydronephrosis Current Visit: Yes Status: Acute Assessment and Plan: Renal ultrasound with right-sided hydronephrosis s/p stent placement urology on board (6) Diabetes Current Visit: Yes Status: Acute Assessment and Plan: Insulin-dependent diabetes most likely secondary to chronic pancreatitis glucose running in normal range Fingersticks every 4 hours hold off of insulin continue with hypoglycemia protocol A1c was 12.5 (7) Chronic pancreatitis Current Visit: Yes Status: Acute Assessment and Plan: I discussed patient with primary care physician Was documented he has chronic pancreatitis however secondary to unknown etiology as per primary care he complained of fecal incontinence and diarrhea CT abdomen and pelvis 07/16- confirmed diagnosis fecal pancreatic elastase ordered GI consulted Lipid panel noted (8) Bicytopenia Current Visit: Yes Status: Acute Assessment and Plan: Bicytopenia is chronic as per PCP most likely Related to liver disease- hepatitis serology sent CBC on June 2018 showed hemoglobin level of 9.7 and platelet count of 55 secondary to unknown etiology as per PCPnew patient to the practice b12 is being replaced iron is being replaced Avoid NSAIDs, anticoagulations, aspirin (9) Hypokalemia Current Visit: Yes Status: Acute Assessment and Plan: Replaced (10) Current every day smoker Current Visit: Yes Status: Acute Assessment and Plan: smokes 1 PPd everyday for many years nicotine patch Duo-nebs (11) Iron deficiency anemia Current Visit: Yes Status: Acute Assessment and Plan: started on iron supplements (12) B12 deficiency Current Visit: Yes Status: Acute Assessment and Plan: started replacement will follow (13) Liver mass Current Visit: Yes Status: Acute Assessment and Plan: right hepatic mass- growing in size CEA WNL AFP in process hep c positive Gi consulted will follow recommendations will consult IR for IR guided bipsy on 07/18/18 CT A/P 07/15- IMPRESSION: 1. Exam is suboptimal for evaluation of hepatic lesion described previously, this lesion appears to measuring larger concerning for progression of presumed metastatic disease versus primary hepatic malignancy. 2. Right hydronephrosis, the result of a proximal right ureter calculus measures 10 mm. 3. Findings of acute on chronic pancreatitis. Suboptimal evaluation without IV contrast. 4. Nonspecific gas in the urinary bladder; correlate with history of recent instrumentation. 5. Elaina mesentery appearance with shotty lymph nodes at the nares enteric root which can be seen with inflammatory/infectious processes or with lymphoma. 6. Calcific atherosclerotic disease aorta. 7. Nonspecific left adrenal nodule may reflect a lipid poor adenoma. Continued CT surveillance recommended. 8. New right pleural effusion with right basilar relaxation atelectasis. 9. Calcific atherosclerosis coronary arteries and aorta. 10. Is paraseptal emphysema predominates in the upper lungs. (14) DVT prophylaxis Current Visit: Yes Status: Acute Assessment and Plan: SCDs (15) Hypomagnesemia Current Visit: Yes Status: Resolved Assessment and Plan: Replaced and resolved - Time Spent with Patient Total time spent is greater than 50% in coordination of care (as documented) at patient's floor/unit and/or counseling patient: Internal Medicine: Result - Labs CBC & Chem 7: 07/16/18 05:28 07/16/18 05:28 Labs: Short CBC 07/16/18 Range/Units 05:28 WBC 8.1 (4.3-11.1) K/mcL Hgb 8.7 L (12.9-16.9) g/dL Hct 26.3 L (37.5-50.1) % Plt Count 36 L (140-400) K/mcL Neutrophils # 7.3 (1.6-8.9) K/mcL BMP 07/16/18 05:28 Sodium 137 Potassium 3.2 L Chloride 108 H Carbon Dioxide 20 L BUN 30 H Creatinine 1.48 H Glucose 85 Calcium 7.4 L - ABG Interpretation ABG results: PT/INR, D-dimer PT 13.7 Seconds (9.4-12.1) H 07/15/18 14:45 - Impressions Impressions Abdomen/Pelvis CT 07/15/18 13:33 IMPRESSION: 1. Exam is suboptimal for evaluation of hepatic lesion described previously, this lesion appears to measuring larger concerning for progression of presumed metastatic disease versus primary hepatic malignancy. 2. Right hydronephrosis, the result of a proximal right ureter calculus measures 10 mm. 3. Findings of acute on chronic pancreatitis. Suboptimal evaluation without IV contrast. 4. Nonspecific gas in the urinary bladder; correlate with history of recent instrumentation. 5. Elaina mesentery appearance with shotty lymph nodes at the nares enteric root which can be seen with inflammatory/infectious processes or with lymphoma. 6. Calcific atherosclerotic disease aorta. 7. Nonspecific left adrenal nodule may reflect a lipid poor adenoma. Continued CT surveillance recommended. 8. New right pleural effusion with right basilar relaxation atelectasis. 9. Calcific atherosclerosis coronary arteries and aorta. 10. Is paraseptal emphysema predominates in the upper lungs. D/ / Javier Saldana / Javier Saldana Interpreting Provider: Javier Saldana Chest CT 07/15/18 14:11 IMPRESSION: 1. Exam is suboptimal for evaluation of hepatic lesion described previously, this lesion appears to measuring larger concerning for progression of presumed metastatic disease versus primary hepatic malignancy. 2. Right hydronephrosis, the result of a proximal right ureter calculus measures 10 mm. 3. Findings of acute on chronic pancreatitis. Suboptimal evaluation without IV contrast. 4. Nonspecific gas in the urinary bladder; correlate with history of recent instrumentation. 5. Elaina mesentery appearance with shotty lymph nodes at the nares enteric root which can be seen with inflammatory/infectious processes or with lymphoma. 6. Calcific atherosclerotic disease aorta. 7. Nonspecific left adrenal nodule may reflect a lipid poor adenoma. Continued CT surveillance recommended. 8. New right pleural effusion with right basilar relaxation atelectasis. 9. Calcific atherosclerosis coronary arteries and aorta. 10. Is paraseptal emphysema predominates in the upper lungs. D/ / Javier Saldana / Javier Saldana Interpreting Provider: Javier Saldana Retrograde Pyelogram 07/16/18 00:00 IMPRESSION: Intraprocedural fluoroscopic spot images as above. See separate procedure report for more information. D/ / Jaret Christiansen MD / Jaret Christiansen MD Interpreting Provider: Jaret Christiansen MD Consult Discharge Plan - Plan Referrals: Rosario Abad, PIPE STEM SAWYER [Primary Care Provider] - (1) Sepsis Qualifiers: Sepsis type: sepsis due to unspecified organism Qualified Code(s): A41.9 - Sepsis, unspecified organism (2) Pneumonia Qualifiers: Pneumonia type: due to unspecified organism Laterality: right Lung location: upper lobe of lung Qualified Code(s): J18.1 - Lobar pneumonia, unspecified organism (3) Acute renal failure (ARF) Qualifiers: Acute renal failure type: unspecified Qualified Code(s): N17.9 - Acute kidney failure, unspecified (5) Hydronephrosis Qualifiers: Hydronephrosis type: unspecified Qualified Code(s): N13.30 - Unspecified hy dronephrosis (6) Diabetes Qualifiers: Diabetes mellitus type: due to underlying condition 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
[2018-07-17] MEDS: Ipratropium/Albuterol Neb 3 ML IH SCH ×4 (04:21→23:02)
[2018-07-17] MEDS: *HR* OxyCODONE/APAP 5/325 TABLET PO PRN ×4 (04:59→23:53)
[2018-07-17 05:55] LABS: Mean Platelet Volume 10.7 fL (9.4-12.4)
[2018-07-17 05:57] LABS: Hematocrit 27.6 % (37.5-50.1); Immature Platelets 3.4 % (1.1-6.1); Mean Corpuscular HGB Conc 32.6 g/dL (31.6-35.5); Mean Corpuscular Hemoglobin 28.9 pg (28.0-33.3); Mean Corpuscular Volume 88.7 fL (83.0-100.0); Red Blood Count 3.11 M/mcL (4.19-5.50); Red Cell Distribution Width 15.8 % (11.5-14.5)
[2018-07-17 06:07] LABS: BUN/Creatinine Ratio 28 (6-26); Blood Urea Nitrogen 39 mg/dL (8-23); Calcium 7.7 mg/dL (8.6-10.3); Carbon Dioxide 19 mEq/L (23-29); Chloride 107 mEq/L (98-107); Glucose 257 mg/dL (70-105); Osmolality,Calculated 300 (280-300); Potassium 3.8 mEq/L (3.5-5.1); Sodium 136 mEq/L (136-145); eGFR For Non-African Americans 52 (> 60)
[2018-07-17] MEDS: Insulin LISPRO 300 UNITS/3 ML VIAL SQ SCH ×4 (07:16→17:34)
[2018-07-17] MEDS: Nicotine 21 MG PATCH.TD24 TD SCH (07:57)
[2018-07-17] MEDS: cefTRIAXone 2,000 MG in Water for inj. (sterile) 20 ML 20 ML IVP SCH (07:57)
[2018-07-17] MEDS: Cyanocobalamin (B-12) 1,000 MCG TABLET PO SCH (07:57)
[2018-07-17] MEDS: Folic Acid 1 MG TABLET PO SCH (07:57)
--- NOTE | 2018-07-17 08:31 | Urology Progress Note ---
Date of Encounter: 07/17/18 Time of Encounter: 08:30 - Assessment and Plan (1) Ureteral stone Current Visit: Yes Status: Acute Assessment and plan: Postoperative day #1 status post cystoscopy and right ureteral stent placement. He is doing well. I will discontinue the Kumar catheter today. Continue antibiotics for Klebsiella. We will arrange for definitive stone surgery as an outpatient. Appreciate internal medicine support. Progress Note Narrative: Doing well this morning postop day #1 status post right ureteral stent placement. Urine culture is growing out Klebsiella. He has been afebrile overnight. Objective Initial Vital Signs Temp Pulse Resp BP Pulse Ox 98.1 F 122 20 87/59 98 07/14/18 16:37 07/14/18 16:37 07/14/18 16:37 07/14/18 16:37 07/14/18 16:37 - General physical appearance Present: well developed, well nourished, no distress - Respiratory Present: normal respiratory effort - Abdomen Present: soft - Genitourinary Present: other (Kumar catheter in place with clear urine.) - Labs 07/17/18 04:00 07/17/18 05:45 Diabetes panel 07/17/18 Range/Units 05:45 Sodium 136 (136-145) mEq/L Potassium 3.8 (3.5-5.1) mEq/L Chloride 107 (98-107) mEq/L Carbon Dioxide 19 L (23-29) mEq/L BUN 39 H (8-23) mg/dL Creatinine 1.40 H (0.70-1.30) mg/dL Glucose 257 H (70-105) mg/dL Calcium 7.7 L (8.6-10.3) mg/dL Calcium panel 07/17/18 Range/Units 05:45 Calcium 7.7 L (8.6-10.3) mg/dL Pituitary panel 07/17/18 Range/Units 05:45 Sodium 136 (136-145) mEq/L Potassium 3.8 (3.5-5.1) mEq/L Chloride 107 (98-107) mEq/L Carbon Dioxide 19 L (23-29) mEq/L BUN 39 H (8-23) mg/dL Creatinine 1.40 H (0.70-1.30) mg/dL Glucose 257 H (70-105) mg/dL Calcium 7.7 L (8.6-10.3) mg/dL Adrenal panel 07/17/18 Range/Units 05:45 Sodium 136 (136-145) mEq/L Potassium 3.8 (3.5-5.1) mEq/L Chloride 107 (98-107) mEq/L Carbon Dioxide 19 L (23-29) mEq/L BUN 39 H (8-23) mg/dL Creatinine 1.40 H (0.70-1.30) mg/dL Glucose 257 H (70-105) mg/dL Calcium 7.7 L (8.6-10.3) mg/dL Consult Discharge Plan - Plan Referrals: Rosario Abad, ALMOND HULLER [Primary Care Provider] -
--- NOTE | 2018-07-17 12:13 | Internal Med Progress Note ---
Hospitalist Progress Note - Encounter Date of Encounter: 07/17/18 Time of Encounter: 12:10 - Subjective Interval History: patient was seen and examiend at bedside. denies N/v/D. his abdominal pain has improved. denies CP, SOB or palpitations. - Exam Vitals: Temp Pulse Resp BP Pulse Ox 97.6 F 74 16 171/98 98 07/17/18 07:25 07/17/18 07:25 07/17/18 11:12 07/17/18 07:25 07/17/18 11:12 Exam: General: Patient is alert, oriented, no acute distress, uncooperative Head: atraumatic, normocephalic, Eye: normal appearance, PERRL, no scleral icterus, no conjunctival injection ENT: mucous membranes moist, normal external ear exam Neck: normal inspection, trachea midline, full ROM, no carotid bruits Chest: normal inspection, symmetric chest rise Respiratory: Good respiratory effort. Bilateral breath sounds are clear without wheezing, crackles, or rhonchi. Cardiovascular: Regular rate and rhythm. s1 and s2 No clicks, rubs, gallops, or murmors. Abdomen: Bowel sounds present normoactive x-4 quadrants. Abdomen is soft, nondistended. no Epigastric tenderness. No guarding or rebound. No organomegaly noted, could not appreciate ascites musculoskeletal: Spontaneously moving all extremities. no edema, no calf tenderness Skin: warm, dry, intact. Neuro: Alert, no focal deficit Psych: Patient's affect is normal - Assessment and Plan (1) Liver mass Current Visit: Yes Status: Acute Assessment and Plan: right hepatic mass- growing in size CEA WNL AFP in process hep c positive Gi consulted will follow recommendations IR consulted for IR guided biopsy on 07/18/18- nothing by mouth at midnight CT A/P 07/15- IMPRESSION: 1. Exam is suboptimal for evaluation of hepatic lesion described previously, this lesion appears to measuring larger concerning for progression of presumed metastatic disease versus primary hepatic malignancy. 2. Right hydronephrosis, the result of a proximal right ureter calculus measures 10 mm. 3. Findings of acute on chronic pancreatitis. Suboptimal evaluation without IV contrast. 4. Nonspecific gas in the urinary bladder; correlate with history of recent instrumentation. 5. Elaina mesentery appearance with shotty lymph nodes at the nares enteric root which can be seen with inflammatory/infectious processes or with lymphoma. 6. Calcific atherosclerotic disease aorta. 7. Nonspecific left adrenal nodule may reflect a lipid poor adenoma. Continued CT surveillance recommended. 8. New right pleural effusion with right basilar relaxation atelectasis. 9. Calcific atherosclerosis coronary arteries and aorta. 10. Is paraseptal emphysema predominates in the upper lungs. (2) Sepsis Current Visit: Yes Status: Resolved Assessment and Plan: sepsis secondary to complicated UTI and PNA Was tachycardic with leukocytosis- resolved WBC count was 16 admission - resolved Lactic acid negative Blood cultures gram negative rods x 2 Urine cultures klebsiella sensitive to ceftriaxone Urine antigens negative On ceftriaxone, proCalcitonin of 12.52 doxycycline was discontinued as urine antigens were negative Influenza negative (3) Pneumonia Current Visit: Yes Status: Acute Assessment and Plan: Right upper lobe opacity Management as per above (4) Acute renal failure (ARF) Current Visit: Yes Status: Acute Assessment and Plan: Most likely prerenal from dehydration and nephrolithiasis renal US with right sided hydronephrosis- urology on board s/p stent placement Currently improving Strict intake and output We will continue to monitor renal functions Avoid nephrotoxic medications Most likely will discontinue Kumar in the a.m. (5) Complicated urinary tract infection Current Visit: Yes Status: Acute Assessment and Plan: Complicated Klebsiella pneumoniae UTI Renal ultrasound with right-sided hydronephrosis Urology on board s/p stent placement On ceftriaxone (6) Hydronephrosis Current Visit: Yes Status: Acute Assessment and Plan: Renal ultrasound with right-sided hydronephrosis s/p stent placement urology on board (7) Diabetes Current Visit: Yes Status: Acute Assessment and Plan: Insulin-dependent diabetes most likely secondary to chronic pancreatitis glucose running in normal range Fingersticks every 4 hours on sliding scale insulin continue with hypoglycemia protocol A1c was 12.5 (8) Chronic pancreatitis Current Visit: Yes Status: Acute Assessment and Plan: I discussed patient with primary care physician- Was documented he has chronic pancreatitis however secondary to unknown etiology as per primary care he complained of fecal incontinence and diarrhea CT abdomen and pelvis 07/16- confirmed diagnosis fecal pancreatic elastase ordered GI consulted Lipid panel noted (9) Bicytopenia Current Visit: Yes Status: Acute Assessment and Plan: Bicytopenia is chronic as per PCP most likely Related to liver disease- hepatitis serology sent CBC on June 2018 showed hemoglobin level of 9.7 and platelet count of 55 secondary to unknown etiology as per PCPnew patient to the practice b12 is being replaced iron is being replaced Avoid NSAIDs, anticoagulations, aspirin (10) Current every day smoker Current Visit: Yes Status: Acute Assessment and Plan: smokes 1 PPd everyday for many years nicotine patch Duo-nebs (11) Iron deficiency anemia Current Visit: Yes Status: Acute Assessment and Plan: started on iron supplements (12) B12 deficiency Current Visit: Yes Status: Acute Assessment and Plan: started replacement will follow (13) DVT prophylaxis Current Visit: Yes Status: Acute Assessment and Plan: SCDs (14) Hypomagnesemia Current Visit: Yes Status: Resolved Assessment and Plan: Replaced and resolved (15) Hypokalemia Current Visit: Yes Status: Resolved Assessment and Plan: Resolved - Time Spent with Patient Total time spent is greater than 50% in coordination of care (as documented) at patient's floor/unit and/or counseling patient: Internal Medicine: Result - Labs CBC & Chem 7: 07/17/18 04:00 07/17/18 05:45 Labs: Short CBC 07/17/18 Range/Units 04:00 WBC 5.6 (4.3-11.1) K/mcL Hgb 9.0 L (12.9-16.9) g/dL Hct 27.6 L (37.5-50.1) % Plt Count 44 L (140-400) K/mcL BMP 07/17/18 05:45 Sodium 136 Potassium 3.8 Chloride 107 Carbon Dioxide 19 L BUN 39 H Creatinine 1.40 H Glucose 257 H Calcium 7.7 L - ABG Interpretation ABG results: PT/INR, D-dimer PT 13.7 Seconds (9.4-12.1) H 07/15/18 14:45 Consult Discharge Plan - Plan Referrals: Rosario Abad, PERSONNEL MANAGER [Primary Care Provider] - (2) Sepsis Qualifiers: Sepsis type: sepsis due to unspecified organism Qualified Code(s): A41.9 - Sepsis, unspecified organism (3) Pneumonia Qualifiers: Pneumonia type: due to unspecified organism Laterality: right Lung location: upper lobe of lung Qualified Code(s): J18.1 - Lobar pneumonia, unspecified organism (4) Acute renal failure (ARF) Qualifiers: Acute renal failure type: unspecified Qualified Code(s): N17.9 - Acute kidney failure, unspecified (6) Hydronephrosis Qualifiers: Hydronephrosis type: unspecified Qualified Code(s): N13.30 - Unspecified hydronephrosis (7) Diabetes Qualifiers: Diabetes mellitus type: due to underlying condition 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
[2018-07-17] MEDS: Ondansetron 4 MG/2 ML VIAL IVP PRN (20:42)
[2018-07-18] MEDS: Ipratropium/Albuterol Neb 3 ML IH SCH ×4 (03:39→21:43)
[2018-07-18] MEDS: Ondansetron 4 MG/2 ML VIAL IVP PRN ×2 (03:48→12:41)
[2018-07-18 04:32] LABS: Mean Platelet Volume 10.2 fL (9.4-12.4)
[2018-07-18 04:34] LABS: Hematocrit 26.2 % (37.5-50.1); Hemoglobin 8.7 g/dL (12.9-16.9); Immature Platelets 2.6 % (1.1-6.1); Mean Corpuscular HGB Conc 33.2 g/dL (31.6-35.5); Mean Corpuscular Hemoglobin 28.7 pg (28.0-33.3); Mean Corpuscular Volume 86.5 fL (83.0-100.0); Red Blood Count 3.03 M/mcL (4.19-5.50); Red Cell Distribution Width 15.5 % (11.5-14.5)
[2018-07-18 04:41] LABS: INR 1.1; Prothrombin Time 12.2 Seconds (9.4-12.1)
[2018-07-18 04:46] LABS: BUN/Creatinine Ratio 29 (6-26); Blood Urea Nitrogen 37 mg/dL (8-23); Calcium 7.6 mg/dL (8.6-10.3); Carbon Dioxide 23 mEq/L (23-29); Chloride 107 mEq/L (98-107); Glucose 221 mg/dL (70-105); Osmolality,Calculated 299 (280-300); Potassium 3.8 mEq/L (3.5-5.1); Sodium 137 mEq/L (136-145); eGFR For Non-African Americans 57 (> 60)
[2018-07-18] MEDS: *HR* OxyCODONE/APAP 5/325 TABLET PO PRN ×3 (08:52→23:01)
[2018-07-18] MEDS: cefTRIAXone 2,000 MG in Water for inj. (sterile) 20 ML 20 ML IVP SCH (08:53)
[2018-07-18] MEDS: Cyanocobalamin (B-12) 1,000 MCG TABLET PO SCH (08:53)
[2018-07-18] MEDS: Folic Acid 1 MG TABLET PO SCH (08:53)
[2018-07-18] MEDS: Nicotine 21 MG PATCH.TD24 TD SCH (08:53)
--- NOTE | 2018-07-18 09:22 | Urology Progress Note ---
Date of Encounter: 07/18/18 Time of Encounter: 09:20 - Assessment and Plan (1) Ureteral stone Current Visit: Yes Status: Acute Assessment and plan: 58-year-old man status post right ureteral stent placement. Postop day #2. He is doing well. Okay to transition to oral antibiotics. We will arrange for definitive right ureteroscopy, laser lithotripsy, and stent placement as an outpatient. Urology will sign off. Please call with any questions. Progress Note Narrative: Patient doing well after right ureteral stent placement. Urine culture is growing out Klebsiella. He is voiding well. No fevers. Objective Initial Vital Signs Temp Pulse Resp BP Pulse Ox 98.1 F 122 20 87/59 98 07/14/18 16:37 07/14/18 16:37 07/14/18 16:37 07/14/18 16:37 07/14/18 16:37 - General physical appearance Present: well developed, well nourished - Respiratory Present: normal respiratory effort - Abdomen Present: soft - Labs 07/18/18 04:00 07/18/18 04:15 Diabetes panel 07/18/18 Range/Units 04:15 Sodium 137 (136-145) mEq/L Potassium 3.8 (3.5-5.1) mEq/L Chloride 107 (98-107) mEq/L Carbon Dioxide 23 (23-29) mEq/L BUN 37 H (8-23) mg/dL Creatinine 1.28 (0.70-1.30) mg/dL Glucose 221 H (70-105) mg/dL Calcium 7.6 L (8.6-10.3) mg/dL Calcium panel 07/18/18 Range/Units 04:15 Calcium 7.6 L (8.6-10.3) mg/dL Pituitary panel 07/18/18 Range/Units 04:15 Sodium 137 (136-145) mEq/L Potassium 3.8 (3.5-5.1) mEq/L Chloride 107 (98-107) mEq/L Carbon Dioxide 23 (23-29) mEq/L BUN 37 H (8-23) mg/dL Creatinine 1.28 (0.70-1.30) mg/dL Glucose 221 H (70-105) mg/dL Calcium 7.6 L (8.6-10.3) mg/dL Adrenal panel 12/17/18 Range/Units 04:15 Sodium 137 (136-145) mEq/L Potassium 3.8 (3.5-5.1) mEq/L Chloride 107 (98-107) mEq/L Carbon Dioxide 23 (23-29) mEq/L BUN 37 H (8-23) mg/dL Creatinine 1.28 (0.70-1.30) mg/dL Glucose 221 H (70-105) mg/dL Calcium 7.6 L (8.6-10.3) mg/dL Consult Discharge Plan - Plan Referrals: Rosario Abad, PATTERN STAMPER [Primary Care Provider] -
[2018-07-18] MEDS: Insulin LISPRO 300 UNITS/3 ML VIAL SQ SCH ×3 (09:24→16:50)
--- NOTE | 2018-07-18 10:18 | Internal Med Progress Note ---
Hospitalist Progress Note - Encounter Date of Encounter: 07/18/18 Time of Encounter: 08:00 - Subjective Interval History: patient was seen and examined at bedside. denies N/v/D. has had no diarrhea, is urinating without difficulty. denies CP, SOB or palpitations. - Exam Vitals: Temp Pulse Resp BP Pulse Ox 98.2 F 83 16 158/88 96 07/18/18 07:40 07/18/18 07:40 07/18/18 07:40 07/18/18 07:40 07/18/18 07:40 Exam: General: Patient is alert, oriented, no acute distress, uncooperative Head: atraumatic, normocephalic, Eye: normal appearance, PERRL, no scleral icterus, no conjunctival injection ENT: mucous membranes moist, normal external ear exam Neck: normal inspection, trachea midline, full ROM, no carotid bruits Chest: normal inspection, symmetric chest rise Respiratory: Good respiratory effort. Bilateral breath sounds are clear without wheezing, crackles, or rhonchi. Cardiovascular: Regular rate and rhythm. s1 and s2 No clicks, rubs, gallops, or murmors. Abdomen: Bowel sounds present normoactive x-4 quadrants. Abdomen is soft, nondistended. no Epigastric tenderness. No guarding or rebound. No organomegaly noted, could not appreciate ascites musculoskeletal: Spontaneously moving all extremities. no edema, no calf tenderness Skin: warm, dry, intact. Neuro: Alert, no focal deficit Psych: Patient's affect is normal - Assessment and Plan (1) Liver mass Current Visit: Yes Status: Acute Assessment and Plan: right hepatic mass- growing in size CEA WNL AFP in process hep c positive Gi consulted will follow recommendations IR consulted for IR guided biopsy on 07/18/18- NPO CT A/P 07/15- IMPRESSION: 1. Exam is suboptimal for evaluation of hepatic lesion described previously, this lesion appears to measuring larger concerning for progression of presumed metastatic disease versus primary hepatic malignancy. 2. Right hydronephrosis, the result of a proximal right ureter calculus measures 10 mm. 3. Findings of acute on chronic pancreatitis. Suboptimal evaluation without IV contrast. 4. Nonspecific gas in the urinary bladder; correlate with history of recent instrumentation. 5. Elaina mesentery appearance with shotty lymph nodes at the nares enteric root which can be seen with inflammatory/infectious processes or with lymphoma. 6. Calcific atherosclerotic disease aorta. 7. Nonspecific left adrenal nodule may reflect a lipid poor adenoma. Continued CT surveillance recommended. 8. New right pleural effusion with right basilar relaxation atelectasis. 9. Calcific atherosclerosis coronary arteries and aorta. 10. Is paraseptal emphysema predominates in the upper lungs. (2) Sepsis Current Visit: Yes Status: Resolved Assessment and Plan: sepsis secondary to complicated UTI and PNA Was tachycardic with leukocytosis- resolved WBC count was 16 admission - resolved Lactic acid negative Blood cultures klebsiella sensitive to ceftriaxone Urine cultures klebsiella sensitive to ceftriaxone Urine antigens negative On ceftriaxone, proCalcitonin of 12.52 doxycycline was discontinued as urine antigens were negative Influenza negative (3) Pneumonia Current Visit: Yes Status: Acute Assessment and Plan: Right upper lobe opacity Management as per above will need follow up Xray as OP (4) Acute renal failure (ARF) Current Visit: Yes Status: Resolved Assessment and Plan: Most likely prerenal from dehydration and nephrolithiasis - resolved renal US with right sided hydronephrosis- urology on board s/p stent placement Currently improving Strict intake and output We will continue to monitor renal functions Avoid nephrotoxic medications (5) Complicated urinary tract infection Current Visit: Yes Status: Acute Assessment and Plan: Complicated Klebsiella pneumoniae UTI Renal ultrasound with right-sided hydronephrosis Urology on board s/p stent placement On ceftriaxone (6) Hydronephrosis Current Visit: Yes Status: Acute Assessment and Plan: Renal ultrasound with right-sided hydronephrosis s/p stent placement urology on board (7) Diabetes Current Visit: Yes Status: Acute Assessment and Plan: Insulin-dependent diabetes most likely secondary to chronic pancreatitis glucose running in normal range Fingersticks every 4 hours on sliding scale insulin continue with hypoglycemia protocol A1c was 12.5 (8) Chronic pancreatitis Current Visit: Yes Status: Acute Assessment and Plan: I discussed patient with primary care physician- Was documented he has chronic pancreatitis however secondary to unknown etiology as per primary care he complained of fecal incontinence and diarrhea CT abdomen and pelvis 07/16- confirmed diagnosis fecal pancreatic elastase ordered GI consulted Lipid panel noted (9) Bicytopenia Current Visit: Yes Status: Acute Assessment and Plan: Bicytopenia is chronic as per PCP most likely Related to liver disease- hepatitis serology sent CBC on June 2018 showed hemoglobin level of 9.7 and platelet count of 55 secondary to unknown etiology as per PCPnew patient to the practice b12 is being replaced iron is being replaced Avoid NSAIDs, anticoagulations, aspirin (10) Current every day smoker Current Visit: Yes Status: Acute Assessment and Plan: smokes 1 PPd everyday for many years nicotine patch Duo-nebs (11) Iron deficiency anemia Current Visit: Yes Status: Acute Assessment and Plan: started on iron supplements (12) B12 deficiency Current Visit: Yes Status: Acute Assessment and Plan: started replacement will follow (13) Hypertension Current Visit: Yes Status: Acute Assessment and Plan: lisinopril on hold until renal functions stabilize started on amlodipine will adjust as per BP (14) Hypomagnesemia Current Visit: Yes Status: Resolved Assessment and Plan: Replaced and resolved (15) Hypokalemia Current Visit: Yes Status: Resolved Assessment and Plan: Resolved (16) DVT prophylaxis Current Visit: Yes Status: Acute Assessment and Plan: SCDs - Time Spent with Patient Total time spent is greater than 50% in coordination of care (as documented) at patient's floor/unit and/or counseling patient: Internal Medicine: Result - Labs CBC & Chem 7: 07/18/18 04:00 07/18/18 04:15 Labs: Short CBC 07/18/18 Range/Units 04:00 WBC 4.5 (4.3-11.1) K/mcL Hgb 8.7 L (12.9-16.9) g/dL Hct 26.2 L (37.5-50.1) % Plt Count 59 L (140-400) K/mcL BMP 07/18/18 04:15 Sodium 137 Potassium 3.8 Chloride 107 Carbon Dioxide 23 BUN 37 H Creatinine 1.28 Glucose 221 H Calcium 7.6 L - ABG Interpretation ABG results: PT/INR, D-dimer PT 12.2 Seconds (9.4-12.1) H 07/18/18 04:00 Consult Discharge Plan - Plan Referrals: Rosario Abad, ON SITE COORDINATOR [Primary Care Provider] - ___ (2) Sepsis Qualifiers: Sepsis type: sepsis due to unspecified organism Qualified Code(s): A41.9 - Sepsis, unspecified organism (3) Pneumonia Qualifiers: Pneumonia type: due to unspecified organism Laterality: right Lung location: upper lobe of lung Qualified Code(s): J18.1 - Lobar pneumonia, unspecified organism (4) Acute renal failure (ARF) Qualifiers: Acute renal failure type: unspecified Qualified Code(s): N17.9 - Acute kidney failure, unspecified (6) Hydronephrosis Qualifiers: Hydronephrosis type: unspecified Qualified Code(s): N13.30 - Unspecified hydronephrosis (7) Diabetes Qualifiers: Diabetes mellitus type: due to underlying condition Diabetes mellitus adjunct faculty for medical terminology insulin use: with adjunct faculty for medical terminology use Diabetes mellitus complication status: without complication Qualified Code(s): E08.9 - Diabetes mellitus due to underlying condition without complications; 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
[2018-07-18] MEDS ORDERED: amLODIPine 5 MG TABLET PO SCH (10:30)
[2018-07-18 10:33] LABS: Hepatitis A Antibody Total POSITIVE (Negative); Hepatitis B Core Ab Total NEGATIVE (Negative)
[2018-07-18 11:39] LABS: VBG Ionized Calcium 1.13 mmol/L (1.15-1.35)
--- NOTE | 2018-07-18 12:16 | Gastroenterology Consult Note ---
Date of Encounter: 07/18/18 Time of Encounter: 09:10 - Assessment and plan (1) Liver mass Current Visit: Yes Status: Acute Assessment and plan: CT A/P shows a liver mass 4.3 x 6 cm which has increased in size. CEA 3.7. AFP has been ordered and is pending. Liver biopsy ordered, awaiting results. (2) Iron deficiency anemia Current Visit: Yes Status: Acute Assessment and plan: On admission Hgb 10.7 with MC 97.2. Today Hgbv 8.7 with MCV 86.5. Iron < 10 with ferritin 317. Agree with iron supplement. Consider EGD and colonoscopy, possibly as outpatient. Continue to monitor CBC and transfuse PRBC as needed. Qualifiers: Iron deficiency anemia type: unspecified iron deficiency Qualified Code(s): D50.9 - Iron deficiency anemia, unspecified (3) Chronic pancreatitis Current Visit: Yes Status: Acute Assessment and plan: Check IgG4, triglycerides, ionized calcium, and REBA. Avoid all alcohol. Qualifiers: Pancreatitis type: unspecified pancreatitis type Qualified Code(s): K86.1 - Other chronic pancreatitis (4) Fecal incontinence Current Visit: Yes Status: Acute Assessment and plan: Fecal incontinence occurs at night with loose stools, no watery diarrhea. Check pancreatic elastase. Start a daily fiber supplement. Qualifiers: Fecal incontinence type: full incontinence of feces Qualified Code(s): R15.9 - Full incontinence of feces (5) Hepatitis C antibody positive in blood Current Visit: Yes Status: Acute Assessment and plan: Check Hep C quant and genotype. - Time Spent With Patient Total time spent is greater than 50% in coordination of care (as documented) at patient's floor/unit and/or counseling patient: GI History of Present Illness - Data of Consult Patient: new to practice Consult date: 07/18/18 Requesting Physician: Stefanie Salinas MD - Consult Narrative Reason for consult: Fecal incontinence, chronic pancreatitis History of present illness: Mr. Adams is a 58 year old male with PMHx of DM, pancreatitis, right-sided hydronephrosis who presented to the ED after being sent by gastroenterology for poor glycemic control and was complaining of nausea and vomiting. He was admitted with pneumonia and UTI. We were consulted to evaluate fecal incontinence and chronic pancreatitis. Patient reports fecal incontinence every 2-3 nights, only while sleeping, for the past 4-5 months. He reports losse stools, and denies any watery diarrhea. He denies any melena or hematochezia. CT A/P shows a liver mass 4.3 x 6 cm which has increased in size, and acute on chronic pancreatitis. Patient denies history of IV drug use. He admits to remote history of snorting drugs and current use of marijuana. He reports one unprofessional tattoo. Procedures: EGD 03/16/2014 Dr. Veliz: LA Grade A esophagitis, old red blood in gastric antrum, no active bleeding, and chemical gastritis. NSAIDs: None Anticoagulation: None Past Med Surg Social Fam HX - Past Medical History Medical history: diabetes Additional medical history: Pancreatitis. Chronic back pain Psychiatric history: no psych history - Past Surgical History Surgical History: other Additional surgical history: Pseudocyst surgery. Left great toe amputation - Social History Smoking Status: Current every day smoker Smokeless Tobacco Status: No Alcohol use: none Drug use: none - Family History Mother Living Status: Hx Family GI Disorders: No Father Living Status: Hx Family GI Disorders: No - Gastrointestinal Gastrointestinal: Present: as per HPI - Constitutional Constitutional: as per HPI - EENT Eyes: as per HPI Ears: Present: as per HPI Nose, mouth and throat: Present: as per HPI - Cardiovascular Cardiovascular ROS: Present: as per HPI - Respiratory Respiratory IM: Present: as per HPI - Genitourinary Genitourinary: Absent: change in color, Urinary frequency - Neurological ROS Neurological GI: Present: as per HPI - Hematologic/Lymphatic Hematologic/Lymphatic pediatric: Present: as per HPI - Musculoskeletal Musculoskeletal ROS GI: Present: as per HPI - Integumentary Integumentary GI: Present: as per HPI - Psychiatric ROS Psychiatric GI: Present: as per HPI - Endocrine Endocrine IM: Present: as per HPI - Constitutional Vitals: Temp Pulse Resp BP Pulse Ox 98.0 F 77 16 172/90 98 07/18/18 12:09 07/18/18 12:09 07/18/18 12:09 07/18/18 12:07/18/18 12:09 General appearance: Present: cooperative, A&O X 3, no acute distress, answers questions appropriately - Head Head exam: Present: atraumatic, normocephalic - Eye Eye exam: Present: normal appearance, sclera anicteric - ENT ENT exam: Present: mucous membranes dry - Neck Neck exam general surgery: Present: normal inspection, trachea midline - Respiratory Respiratory exam: Present: CTAB. Absent: rales, rhonchi, wheezes - Cardiovascular Cardiovascular exam: Present: RRR, +S1, +S2 - GI/Abdominal GI/Abdominal exam: Present: soft, no peritoneal signs. Absent: distended, firm, guarding, tenderness - Rectal Rectal exam: Present: deferred - Extremities Exam Extremities exam: Present: warm - Neurological Exam Neurological exam: Present: no focal deficits - Psychiatric Psychiatric exam: Present: normal affect, normal mood - Skin Skin exam: Present: dry, intact, normal color, warm Results - Labs CBC & Chem 7: 07/18/18 04:00 07/18/18 04:15 Labs: Last Result Calcium 7.6 mg/dL (8.6-10.3) L 07/18/18 04:15 Iron < 10 mcg/dL (65-175) L 07/15/18 14:45 % Saturation TNP 07/15/18 14:45 Transferrin 145 mg/dL (203-362) L 07/15/18 14:45 Ferritin 317 ng/mL (20-250) H 07/15/18 14:45 Triglycerides 133 mg/dL (< 150) 07/15/18 14:45 Vitamin B12 105 pg/mL (250-1100) L 07/15/18 14:31 Folate 12.4 ng/mL (3.0-16.0) 07/15/18 14:31 Urine Opiates Screen Negative ng/mL (Zsxyyk=424) 07/15/18 17:52 Entire Visit Hgb 8.7 g/dL (12.9-16.9) L 07/18/18 04:00 Hct 26.2 % (37.5-50.1) L 07/18/18 04:00 PT 12.2 Seconds (9.4-12.1) H 07/18/18 04:00 Ferritin 317 ng/mL (20-250) H 07/15/18 14:45 Total Bilirubin 0.5 mg/dL (0.3-1.0) 07/15/18 06:15 AST 12 Units/L (13-39) L 07/15/18 06:15 ALT 12 Units/L (7-52) 12/14/18 06:15 Lipase < 3 Units/L (11-82) L 07/14/18 18:28 Carcinoembryonic Ag 3.7 ng/mL (Less than 5.0) 07/16/18 05:28 Folate 12.4 ng/mL (3.0-16.0) 07/15/18 14:31 E. coli (PCR) Not Detected (Not Detect) 07/15/18 06:15 - ABG ABG results: PT/INR, D-dimer PT 12.2 Seconds (9.4-12.1) H 07/18/18 04:00 Consult Discharge Plan - Plan Referrals: Rosario Abad, STONE OPERATOR [Primary Care Provider] -
--- NOTE | 2018-07-18 13:17 | Electrocardiograph Report ---
[place] [id number] Test Date: 2018-07-15 Pat Name: Ke Adams Department: 111 Room: [facility] Gender: M [employer] Counselors: TC : 1960 Requested By: Ye Laguna Order Number: [id number] Reading MD: Blaine Garvin Measurements Intervals [place] Rate: 94 P: 52 UT: 135 QRS: 15 QRSD: 82 T: 78 QT: 388 QTc: 440 Interpretive Statements SINUS RHYTHM Electronically Signed On 07-18-2018 13:15:51 EST by Blaine Garvin
[2018-07-18] MEDS ORDERED: Gadolinium Contrast Agent (WT Based) IV PRN (14:02)
[2018-07-18] MEDS ORDERED: GADOXETATE DISODIUM 2.5 MMOL/10 ML VIAL IVP ONE (17:03)
[2018-07-19] MEDS ORDERED: Ipratropium/Albuterol Neb 3 ML IH PRN (02:34)
[2018-07-19 06:35] LABS: Hematocrit 28.4 % (37.5-50.1); Mean Corpuscular HGB Conc 31.7 g/dL (31.6-35.5); Red Cell Distribution Width 15.1 % (11.5-14.5)
[2018-07-19 06:37] LABS: Mean Corpuscular Hemoglobin 28.2 pg (28.0-33.3); Mean Platelet Volume 11.1 fL (9.4-12.4); Red Blood Count 3.19 M/mcL (4.19-5.50)
[2018-07-19 06:42] LABS: BUN/Creatinine Ratio 22 (6-26); Blood Urea Nitrogen 26 mg/dL (8-23); Calcium 7.6 mg/dL (8.6-10.3); Carbon Dioxide 17 mEq/L (23-29); Chloride 103 mEq/L (98-107); Glucose 345 mg/dL (70-105); Osmolality,Calculated 292 (280-300); Potassium 3.6 mEq/L (3.5-5.1); Sodium 132 mEq/L (136-145); eGFR For Non-African Americans > 60 (> 60)
[2018-07-19 08:38] LABS: Triglycerides 235 mg/dL (< 150)
[2018-07-19] MEDS: Nicotine 21 MG PATCH.TD24 TD SCH (08:55)
[2018-07-19] MEDS: Cyanocobalamin (B-12) 1,000 MCG TABLET PO SCH (08:55)
[2018-07-19] MEDS: Folic Acid 1 MG TABLET PO SCH (08:55)
[2018-07-19] MEDS: cefTRIAXone 2,000 MG in Water for inj. (sterile) 20 ML 20 ML IVP SCH (08:56)
[2018-07-19] MEDS: Insulin LISPRO 300 UNITS/3 ML VIAL SQ SCH ×3 (08:58→15:52)
[2018-07-19] MEDS ORDERED: amLODIPine 5 MG TABLET PO SCH (09:00)
[2018-07-19] MEDS ORDERED: Isovue-370 500 ML INFUS..BTL IV ONE (09:20)
[2018-07-19 11:17] VITALS: BP 108/66
--- NOTE | 2018-07-19 14:02 | Discharge Summary ---
- NOTES TO OUTPATIENT PROVIDER Notes to Outpatient Provider: follow up with PCP, follow up with urology, follow up with GI for OP colonoscopy and EGD for hepC. for PCP to follow blood glucose and adjust insulin. follow renal functions and electrolytes Orders not resulted at time of discharge: Pending orders 07/15/18 07:45 Culture,Sputum with Gram Stain [RM] Stat 07/16/18 14:41 Pancreatic Elastase, Fecal Routine 07/17/18 07:28 IR biopsy abd or retroper [IR] Routine 07/18/18 04:15 Culture,Blood [BC] AM 0400 07/18/18 08:39 REBA IgG KEITH rflx IFA Routine [id number] Routine F-Actin IgG Reflex Sm Muscle Routine 07/18/18 08:40 Immunoglobulin G Subclass 4 Routine MPO/PR3 (ANCA) Antibodies Routine Mitochondrial M2 Antibody, IgG Routine 07/18/18 11:11 Ceruloplasmin Routine Hepatitis C Qnt Reflx Genotype Routine Date of Encounter: 07/19/18 Time of Encounter: 13:56 - Discharge Diagnosis (1) Sepsis Priority: Primary Status: Resolved Qualifiers: Sepsis type: sepsis due to unspecified organism Qualified Code(s): A41.9 - Sepsis, unspecified organism (2) Liver mass Priority: Secondary Status: Acute (3) Pneumonia Priority: Secondary Status: Acute Qualifiers: Pneumonia type: due to unspecified organism Laterality: right Lung location: upper lobe of lung Qualified Code(s): J18.1 - Lobar pneumonia, unspecified organism (4) Acute renal failure (ARF) Priority: Secondary Status: Resolved Qualifiers: Acute renal failure type: unspecified Qualified Code(s): N17.9 - Acute kidney failure, unspecified (5) Complicated urinary tract infection Priority: Secondary Status: Acute (6) Hydronephrosis Priority: Secondary Status: Acute Qualifiers: Hydronephrosis type: unspecified Qualified Code(s): N13.30 - Unspecified hydronephrosis (7) Diabetes Priority: Secondary Status: Acute Qualifiers: Diabetes mellitus type: due to underlying condition Diabetes mellitus intermediate insulin use: with intermediate use Diabetes mellitus complication status: without complication Qualified Code(s): E08.9 - Diabetes mellitus due to underlying condition without complications; Z79.4 - retirement (current) use of insulin (8) Chronic pancreatitis Priority: Secondary Status: Acute Qualifiers: Pancreatitis type: unspecified pancreatitis type Qualified Code(s): K86.1 - Other chronic pancreatitis (9) Bicytopenia Priority: Secondary Status: Acute (10) Current every day smoker Priority: Secondary Status: Acute (11) Iron deficiency anemia Priority: Secondary Status: Acute Qualifiers: Iron deficiency anemia type: unspecified iron deficiency Qualified Code(s): D50.9 - Iron deficiency anemia, unspecified (12) B12 deficiency Priority: Secondary Status: Acute (13) Hypertension Priority: Secondary Status: Acute Qualifiers: Hypertension type: essential hypertension Qualified Code(s): I10 - Essential (primary) hypertension (14) Hypomagnesemia Priority: Secondary Status: Resolved (15) Hypokalemia Priority: Secondary Status: Resolved (16) DVT prophylaxis Priority: Secondary Status: Acute Hospital course: Mr. Adams is a 58 year old male with history of hypertension, diabetes and chronic pancreatitis presented from Dr. Valdez's office to the emergency department with concerns of poor glucose control and possible DKA. In the emergency department he was found to be hypotensive tachycardic and febrile and was started on IV antibiotics and IV fluids as his UA was found to be positive and chest x-ray was suggestive of pneumonia. In addition to above he was also found to be hypoglycemic. Hypoglycemia resolved as sepsis resolved. A1c was found to be 12.5. Home dose of long- acting insulin was reduced, glimepiride was discontinued, two-view with a sliding scale insulin. He was told to obtain a blood glucose log and take to the primary care physician for adjustment of his insulins. He was counseled on signs and symptoms of hypoglycemia and he understands. Glucose tablets were provided. BMP on admission showed acute renal failure. CT abdomen and pelvis showed right-sided hydronephrosis, proximal right ureter calculus measuring 10 mm. Urology was consulted s/p stent placement. Urine cultures and 2 sets of blood cultures on admission grew klebsiella sensitive to Levaquin. 2 more blood cultures were sent once he was treated with IV antibiotics and are no growth to date. He is to complete a 14 day course of Levaquin by mouth. Acute renal failure resolved with above interventions. 4 right upper lobe opacity, he is to complete the above antibiotic course and her PCP to repeat chest x-ray to ensure resolution. GI was consulted for right hepatic lobe lesion. CEA and AFP within normal limit, hep C was found to be positive. MRI of the abdomen with and without contrast, liver protocol was performed on 07/18 which showed, No definite liver lesion is seen on precontrast imaging. On delayed postcontrast imaging there is subtle area of hypoenhancement corresponding to prior CT findings. No mass effect or deviation of vessels. Given this has been present since 2013 malignancy is suspected to be less likely and this area is suspected to represent focal fatty infiltration or less likely be related to variable enhancement. I discussed the above findings with GI and they recommended close outpatient GI follow-up. Nursing staff aware to provide patient with appointment. CT angiogram of the abdomen and pelvis was performed as the MRI of the abdomen showed possible right retroperitoneal hematoma. CT of the abdomen did not show any significant hemorrhage. I discussed the findings with urologist Dr. Esposito who recommended the patient to follow-up with him as outpatient. I also discussed discharging the patient on Levaquin to complete a 14 day course and he also agrees. He was cleared for discharge by urology and gastroenterology and he understands that he will need close follow-up with them. Nursing provided the patient with follow-up appointments. He was counseled extensively on smoking cessation, nutrition, and medication compliance along with compliance to his follow-ups and he understands. PCP to monitor CBC, and BMP for electrolytes and renal functions. PCP to follow A1c, and fingerstick logs chronic pancreatitis and cirrhosis labs sent by GI in process for PCP to follow labs, and for patinet to have close follow up with GI MRI of the abdomen 07/18IMPRESSION: Motion limited study. No definite liver lesion is seen on precontrast imaging. On delayed postcontrast imaging there is subtle area of hypoenhancement corresponding to prior CT findings. No mass effect or deviation of vessels. Given this has been present since 2013 malignancy is suspected to be less likely and this area is suspected to represent focal fatty infiltration or less likely be related to variable enhancement. Heterogeneous enhancement of the right kidney is seen in a pattern suggestive of pyelonephritis or infarcts. Incompletely imaged right retroperitoneal hematoma. CTA of the abdomen IMPRESSION: 1. Inhomogeneous perfusion of the right kidney which also appears edematous with edema extending into the perinephric tissues. A functioning stent is noted in the ureter however, the appearance of the kidney is suggestive of acute pyelonephritis. 2. 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 Mild splenomegaly. This may be related to chronic pancreatitis as noted from pancreatic calcifications. 3. Small right pleural effusion and right lower lobe atelectatic changes. 4. No evidence of acute gastrointestinal abnormality. 5. No evidence of significant hemorrhage. CT chest and Abdomen: CT/CT chest wo con IMPRESSION: 1. Exam is suboptimal for evaluation of hepatic lesion described previously, this lesion appears to measuring larger concerning for progression of presumed metastatic disease versus primary hepatic malignancy. 2. Right hydronephrosis, the result of a proximal right ureter calculus measures 10 mm. 3. Findings of acute on chronic pancreatitis. Suboptimal evaluation without IV contrast. 4. Nonspecific gas in the urinary bladder; correlate with history of recent instrumentation. 5. Elaina mesentery appearance with shotty lymph nodes at the nares enteric root which can be seen with inflammatory/infectious processes or with lymphoma. 6. Calcific atherosclerotic disease aorta. 7. Nonspecific left adrenal nodule may reflect a lipid poor adenoma. Continued CT surveillance recommended. 8. New right pleural effusion with right basilar relaxation atelectasis. 9. Calcific atherosclerosis coronary arteries and aorta. 10. Is paraseptal emphysema predominates in the upper lungs. Discharge discussed with: patient, nurse, social work, case management, executive talent acquisition consultant Time spent discussing smoking cessation with patient: more than 10 minutes - Time Spent with Patient Total time spent providing and/or coordinating discharge services: Greater than 30 minutes (50) - Discharge Medications Prescriptions: amLODIPine [Norvasc] 5 mg PO DAILY #30 tablet Ferrous Sulfate 325 mg PO DAILY@0800 #30 tablet Folic Acid 1 mg PO DAILY #30 tablet Insulin Glargine [Lantus] 15 units SQ HS 30 Days #3 mls Levofloxacin [Levaquin] 750 mg PO DAILY #10 tablet Nicotine Patch [Nicoderm] 21 mg TD DAILY #30 patch.td24 Home Medications: Cyanocobalamin (B-12) [Vitamin B12] 1,000 mcg PO DAILY 07/14/18 [History] Insulin ASPART [NovoLOG] 0 unit SQ TID 07/14/18 [History] Lisinopril [Zestril] 10 mg PO DAILY 07/14/18 [History] Metformin HCl 1,000 mg PO BID 07/14/18 [History] Dextrose [Glucose] 4 gm PO PRN PRN #30 tab.chew 07/19/18 [Rx] Ferrous Sulfate 325 mg PO DAILY@0800 #30 tablet 07/19/18 [Rx] Folic Acid 1 mg PO DAILY #30 tablet 07/19/18 [Rx] Insulin Glargine [Lantus] 15 units SQ HS 30 Days #3 mls 07/19/18 [Rx] Levofloxacin [Levaquin] 750 mg PO DAILY #10 tablet 07/19/18 [Rx] Nicotine Patch [Nicoderm] 21 mg TD DAILY #30 patch.td24 07/19/18 [Rx] amLODIPine [Norvasc] 5 mg PO DAILY #30 tablet 07/19/18 [Rx] Allergies/Adverse Reactions: Allergy/AdvReac Type Severity Reaction Status Date / Time No Known Allergies Allergy Verified 07/14/18 16:40 Date of admission: 07/15/18 05:47 Primary care physician: Rosario Abad CNP Consults: 07/15/18 13:13 Consult to Urology [CONS] Routine Consulting Provider: [facility] Reason for Consult: right sided hydronephrosis Call Completed: No 07/15/18 13:35 Consult to Gastroenterology [CONS] Routine Consulting Provider: Gastroenterology [facility] Reason for Consult: fecal incontinence, ?chronic pancreatitis as per PCP Call Completed: No - Constitutional Vitals: Temp Pulse Resp BP Pulse Ox 98.6 F 86 15 108/66 98 07/19/18 11:17 07/19/18 11:17 07/19/18 11:17 07/19/18 11:17 07/19/18 04:00 General appearance: Present: cooperative, mild distress, A&O X 3, pleasant, answers questions appropriately Exam: General: Patient is alert, oriented, no acute distress, uncooperative Head: atraumatic, normocephalic, Eye: normal appearance, PERRL, no scleral icterus, no conjunctival injection ENT: mucous membranes moist, normal external ear exam Neck: normal inspection, trachea midline, full ROM, no carotid bruits Chest: normal inspection, symmetric chest rise Respiratory: Good respiratory effort. Bilateral breath sounds are clear without wheezing, crackles, or rhonchi. Cardiovascular: Regular rate and rhythm. s1 and s2 No clicks, rubs, gallops, or murmors. Abdomen: Bowel sounds present normoactive x-4 quadrants. Abdomen is soft, nondistended. no Epigastric tenderness. No guarding or rebound. No organom egaly noted, could not appreciate ascites musculoskeletal: Spontaneously moving all extremities. no edema, no calf tenderness Skin: warm, dry, intact. Neuro: Alert, no focal deficit Psych: Patient's affect is normal - Patient Status Disposition: Home, Self-Care Condition: Fair Functional capacity at discharge: independent ambulation Overall status at discharge: patient is progressing back to baseline - Discharge Instructions Follow Up With: Rosario Abad CNP [Primary Care Provider] - 07/28/18 1:00 pm Nakul Esposito MD [Partnered Physician] - (called office had to leave a message they should call patient at home with appointment date and time) Cari Molina MD [Partnered Physician] - (had to send a web request the office will call patient at home with appointment date and time) - Diet and Activity Activity: increase activity as tolerated Diet: diabetic diet
[2018-07-19] MEDS ORDERED: levoFLOXacin 750 MG TABLET PO SCH (14:15)
[2018-07-19] MEDS: Ondansetron 4 MG/2 ML VIAL IVP PRN (15:47)
[2018-07-19] MEDS: *HR* OxyCODONE/APAP 5/325 TABLET PO PRN (15:47)
[2018-07-20 14:57] LABS: HCV Quant Interpretation NOT DETECTED (Not Detected); HCV Quant Log NOT DETECTED log IU/mL
== END 2018-07-19 20:38 | disposition home or self-care (01) | DRG 720 ==
LOC: 2NENU 16:35 → EMEROOARM 16:35 → 2NENU 23:52 → SUATTDRO 07-15 05:47
PROVIDERS: ADMIT Pediatrics; ATTEND Internal Medicine